=== PATIENT | female | born 1950 | race Caucasian/White ===

== ENCOUNTER → 2018-04-11 | Outpatient (CLI) | payer OTHER ==
[~2018-04-11] MED LIST: ALBU90OI INH; ALPR.25 PO; BUME2 PO; CHOL10002 PO; FISH1000 PO; FURO20 PO; HYDCHL25 PO; HYDR10 PO; HYDR1TAB94 PO; Klor-Con 1010 MEQ PO; LEVFLO500 PO; LEVSOD125 PO; LISHYD2025 PO; LISI20 PO; LISI5 PO; Lisinopril2.5 MG PO; METF500C PO; METO50 PO; Metoprolol Tar100 MG PO; Mucinex600 MG PO; NITR.4SL SL; OMEG1CAP30 PO; POTCHL10ER PO; PRAV20 PO; PRED10; Pedi-Dri 100,0060 GM TOP; Pravachol80 MG PO; TRAM50 PO; Ventolin Soln3 ML INH; Zithromax250 MG PO
== END ==
LOC: LAB SHORT 13:06 → LAB 13:06
DX: N18.9 Chronic kidney disease, unspecified (principal); R10.9 Unspecified abdominal pain
CPT/HCPCS: 87077; 87086; 87186

== ENCOUNTER 2018-11-09 16:22 | Emergency (ER) | payer OTHER ==
[~2018-11-09] VITALS: Ht 167.6 cm; Wt 117.9 kg
[2018-11-09 17:11] LABS: BASOPHILS ABSOLUTE AUTO 0.09 K/mm3 (0.00-0.23); BASOPHILS PERCENT AUTO 1 % (0-2); EOSINOPHILS ABSOLUTE AUTO 1.36 K/mm3 (0.00-0.68); EOSINOPHILS PERCENT AUTO 13 % (0-6); Hemoglobin 11.8 g/dL (11.5-16.0); IMMATURE GRAN ABSOLUTE AUTO 0.04 K/mm3 (0.00-0.10); IMMATURE GRAN PERCENT AUTO 0 % (0-1); LYMPHOCYTES PERCENT AUTO 25 % (21-46); MONOCYTES ABSOLUTE AUTO 0.89 K/mm3 (0.16-1.47); MONOCYTES PERCENT AUTO 9 % (4-13); Mean Corpuscular HGB 31.9 pg (26.0-34.0); Mean Corpuscular HGB Conc 31.9 g/dL (31.5-36.5); Mean Corpuscular Volume 100 fL (80-100); Mean Platelet Volume 11.6 fL (9.1-12.4); NEUTROPHILS PERCENT AUTO 52 % (41-73); Platelet Count 273 K/mm3 (150-400); RDW Coefficient Variation 13.8 % (11.7-14.2); RDW Standard Deviation 50.5 fL (35.1-46.3); White Blood Cell Count 10.48 K/mm3 (4.00-11.30)
[2018-11-09 17:21] LABS: Albumin, Blood 3.8 g/dL (3.4-5.0); Albumin/Globulin Ratio 1.1 (0.8-1.8); Bilirubin, Total 0.2 mg/dL (0.1-1.0); Bun/Creatinine Ratio 10.8 (12.0-20.0); Calcium, Blood 11.4 mg/dL (8.5-10.1); Creatinine, Blood 5.36 mg/dL (0.40-1.00); Globulin, Blood 3.6 g/dL (2.2-4.0); Phosphorus, Blood 3.8 mg/dL (2.5-4.9); Potassium, Blood 4.5 mmol/L (3.5-5.5); Total Protein, Blood 7.4 g/dL (6.4-8.2)
[2018-11-09 17:39] LABS: Magnesium, Blood 2.2 mg/dL (1.6-2.4)
[2018-11-09 19:59] LABS: Source, Urine Clean Catch
[2018-11-09 20:01] LABS: Bilirubin, Urine Neg (Neg); Blood, Urine 1+ (Neg); Glucose Qualitative, Urine Neg (Neg); Ketones, Urine Neg (Neg); Leukocyte Esterase, Urine 1+ (Neg); Nitrite, Urine Neg (Neg); Protein, Urine Neg (Neg); Specific Gravity, Urine 1.015 (1.003-1.022); Urobilinogen, Urine NORM (Normal)
[2018-11-09 20:08] LABS: Appearance, Urine Clear (Clear); Color, Urine Yellow (P-Yellow)
[2018-11-09 20:17] LABS: Bacteria Many /hpf; Red Blood Cells, Urine 0-2 /hpf (0-2); Squamous Epithelial Cells Few /hpf (Few)
== END 2018-11-10 00:31 | disposition short-term general hospital (02) ==
LOC: ER 16:22
PROVIDERS: Physician Assistant
DX: N13.2 Hydronephrosis with renal and ureteral calculous obstruction (principal); R19.00 Intra-abdominal and pelvic swelling, mass and lump, unspecified site; N17.9 Acute kidney failure, unspecified; I13.0 Hypertensive heart and chronic kidney disease with heart failure and stage 1 through stage 4 chronic kidney disease, or unspecified chronic kidney disease; I50.9 Heart failure, unspecified; N18.9 Chronic kidney disease, unspecified; E11.22 Type 2 diabetes mellitus with diabetic chronic kidney disease; Z79.899 Other long term (current) drug therapy; K21.9 Gastro-esophageal reflux disease without esophagitis
CPT/HCPCS: 36415; 80053; 81001; 83690; 83735; 84100; 85025; 87086; 99284

== ENCOUNTER 2018-12-12 10:23 | Emergency (ER) | payer OTHER ==
[~2018-12-12] VITALS: Ht 167.6 cm; Wt 122.5 kg
[2018-12-12 10:56] LABS: BASOPHILS ABSOLUTE AUTO 0.05 K/mm3 (0.00-0.23); BASOPHILS PERCENT AUTO 1 % (0-2); EOSINOPHILS ABSOLUTE AUTO 0.34 K/mm3 (0.00-0.68); EOSINOPHILS PERCENT AUTO 4 % (0-6); Hematocrit 36.7 % (33.0-51.0); Hemoglobin 11.6 g/dL (11.5-16.0); IMMATURE GRAN ABSOLUTE AUTO 0.02 K/mm3 (0.00-0.10); IMMATURE GRAN PERCENT AUTO 0 % (0-1); LYMPHOCYTES ABSOLUTE AUTO 2.45 K/mm3 (0.84-5.20); LYMPHOCYTES PERCENT AUTO 30 % (21-46); MONOCYTES ABSOLUTE AUTO 0.72 K/mm3 (0.16-1.47); MONOCYTES PERCENT AUTO 9 % (4-13); Mean Corpuscular HGB 31.5 pg (26.0-34.0); Mean Corpuscular HGB Conc 31.6 g/dL (31.5-36.5); Mean Corpuscular Volume 100 fL (80-100); Mean Platelet Volume 10.5 fL (9.1-12.4); NEUTROPHILS PERCENT AUTO 56 % (41-73); Platelet Count 318 K/mm3 (150-400); RDW Coefficient Variation 15.1 % (11.7-14.2); RDW Standard Deviation 55.4 fL (35.1-46.3); Red Blood Cell Count 3.68 M/mm3 (3.80-5.20); White Blood Cell Count 8.08 K/mm3 (4.00-11.30)
[2018-12-12 11:20] LABS: Albumin, Blood 3.6 g/dL (3.4-5.0); Albumin/Globulin Ratio 0.9 (0.8-1.8); Bilirubin, Total 0.2 mg/dL (0.1-1.0); Calcium, Blood 9.7 mg/dL (8.5-10.1); Creatinine, Blood 2.07 mg/dL (0.40-1.00); Globulin, Blood 3.9 g/dL (2.2-4.0); Potassium, Blood 4.4 mmol/L (3.5-5.5); Total Protein, Blood 7.5 g/dL (6.4-8.2)
[2018-12-12 11:48] LABS: Source, Urine Clean Catch
[2018-12-12 11:55] LABS: Bilirubin, Urine Neg (Neg); Blood, Urine Neg (Neg); Glucose Qualitative, Urine Neg (Neg); Ketones, Urine Neg (Neg); Leukocyte Esterase, Urine 2+ (Neg); Nitrite, Urine Neg (Neg); Protein, Urine 2+ (Neg); Urobilinogen, Urine NORM (Normal)
[2018-12-12 12:02] LABS: Appearance, Urine Hazy (Clear); Bacteria Few /hpf; Color, Urine Yellow (P-Yellow); Red Blood Cells, Urine Not Seen /hpf (0-2); Squamous Epithelial Cells Few /hpf (Few)
[2018-12-12] MEDS ORDERED: Norco 5-325 Ta1 EACH PO (13:37)
== END 2018-12-12 13:43 | disposition home or self-care (01) ==
LOC: ER 10:23
PROVIDERS: Emergency Medicine
DX: G89.18 Other acute postprocedural pain (principal); R10.31 Right lower quadrant pain; I13.0 Hypertensive heart and chronic kidney disease with heart failure and stage 1 through stage 4 chronic kidney disease, or unspecified chronic kidney disease; I50.9 Heart failure, unspecified; N18.9 Chronic kidney disease, unspecified; E11.22 Type 2 diabetes mellitus with diabetic chronic kidney disease; K21.9 Gastro-esophageal reflux disease without esophagitis; E66.9 Obesity, unspecified; Z79.899 Other long term (current) drug therapy
CPT/HCPCS: 36415; 74176; 80053; 81001; 85025; 87077; 87086; 87186; P9612

== ENCOUNTER → 2019-06-07 | Outpatient (CLI) | payer OTHER ==
[~2019-06-07] MED LIST changes: +Norco 5-325 Ta1 EACH PO
[2019-06-07 13:50] LABS: Source, Urine Clean Catch
[2019-06-07 15:07] LABS: Bilirubin, Urine Neg (Neg); Blood, Urine 1+ (Neg); Glucose Qualitative, Urine Neg (Neg); Ketones, Urine Neg (Neg); Leukocyte Esterase, Urine 3+ (Neg); Nitrite, Urine Neg (Neg); Protein, Urine 1+ (Neg); Urobilinogen, Urine NORM (Normal)
[2019-06-07 15:28] LABS: Appearance, Urine Hazy (Clear); Color, Urine Yellow (P-Yellow)
[2019-06-07 15:30] LABS: Bacteria Mod /hpf; Calcium Oxalate Crystals Many /hpf; Squamous Epithelial Cells Many /hpf (Few)
== END | disposition home or self-care (01) ==
LOC: LAB SHORT 13:48 → LAB 13:48
PROVIDERS: Radiology Radiation Oncology
DX: R30.0 Dysuria (principal)
CPT/HCPCS: 81001; 87086

== ENCOUNTER → 2020-04-03 | Outpatient (CLI) | payer OTHER ==
[2020-04-03 14:44] LABS: BASOPHILS ABSOLUTE AUTO 0.04 K/mm3 (0.00-0.23); BASOPHILS PERCENT AUTO 1 % (0-2); EOSINOPHILS ABSOLUTE AUTO 0.23 K/mm3 (0.00-0.68); EOSINOPHILS PERCENT AUTO 4 % (0-6); Hemoglobin 13.3 g/dL (11.5-16.0); IMMATURE GRAN ABSOLUTE AUTO 0.04 K/mm3 (0.00-0.10); IMMATURE GRAN PERCENT AUTO 1 % (0-1); LYMPHOCYTES ABSOLUTE AUTO 1.25 K/mm3 (0.84-5.20); LYMPHOCYTES PERCENT AUTO 20 % (21-46); MONOCYTES ABSOLUTE AUTO 0.57 K/mm3 (0.16-1.47); MONOCYTES PERCENT AUTO 9 % (4-13); Mean Corpuscular HGB 31.4 pg (26.0-34.0); Mean Corpuscular HGB Conc 31.7 g/dL (31.5-36.5); Mean Corpuscular Volume 99 fL (80-100); Mean Platelet Volume 10.2 fL (9.1-12.4); NEUTROPHILS ABSOLUTE AUTO 4.09 K/mm3 (1.96-9.15); NEUTROPHILS PERCENT AUTO 66 % (41-73); Platelet Count 271 K/mm3 (150-400); RDW Coefficient Variation 15.9 % (11.7-14.2); Red Blood Cell Count 4.24 M/mm3 (3.80-5.20); White Blood Cell Count 6.22 K/mm3 (4.00-11.30)
[2020-04-03 15:09] LABS: Albumin, Blood 3.4 g/dL (3.4-5.0); Bilirubin, Total 0.3 mg/dL (0.1-1.0); Bun/Creatinine Ratio 14.1 (12.0-20.0); Creatinine, Blood 1.56 mg/dL (0.40-1.00); Globulin, Blood 3.5 g/dL (2.2-4.0); Potassium, Blood 4.1 mmol/L (3.5-5.5); Total Protein, Blood 6.9 g/dL (6.4-8.2)
== END | disposition home or self-care (01) ==
LOC: LAB 13:51 → LAB SHORT 13:51
PROVIDERS: Registered Nurse Oncology
DX: C55 Malignant neoplasm of uterus, part unspecified (principal)
CPT/HCPCS: 80053; 85025

== ENCOUNTER → 2021-07-18 | Outpatient (CLI) | payer OTHER ==
[2021-07-18 16:22] LABS: Free Thyroxine 1.44 ng/dL (0.70-1.60); Thyroid Stimulating Hormone 0.941 uIU/mL (0.360-4.800)
== END | disposition home or self-care (01) ==
LOC: LAB SHORT 12:20
PROVIDERS: Physician Assistant
DX: E03.9 Hypothyroidism, unspecified (principal)
CPT/HCPCS: 84439; 84443

== ENCOUNTER 2022-12-12 08:06 | Day surgery (SDC) | payer OTHER ==
[~2022-12-12] VITALS: Ht 167.6 cm; Wt 140.1 kg
[~2022-12-12 08:06] MED LIST changes: +ASPI325 PO; +ASPIR 8181 MG PO; +ATOR10 PO; +CATAPRES0.3 MG PO; +CLON.2 PO; +EUTHYROX50 MC1 PO; +FUROSEMIDE20 MG PO; +IPRAT-ALBUT 0.5-3 ML INH; +METO50ER PO; +METOPROLOL SUCC25 MG PO; +MICONAZOLE NITR85 GM TOP; +PANT20 PO; +POTA10T PO; +Prednisone10 MG PO
[2022-12-12] MEDS ORDERED: LOSA50 PO (08:56)
[2022-12-12] MEDS ORDERED: CALC.25 PO (08:57)
--- NOTE | 2022-12-12 09:11 | NUR ---
12/12/22 0911 Zeina Bateman IN AT 0850 ANNETTE IN AT 0884
--- NOTE | 2022-12-12 16:59 | NUR ---
12/12/22 165Whitley Ruth 1045: THREE LEAD EKG COMPLETED ON PT D/T PULSE RISING TO 150'S TWICE SINCE [facility]. HR HAS NOT SUSTAINED AT THIS LEVEL SINCE PATIENT HAS [facility], SHE HAS MAINTAINED HER BASELINE LEVEL, MOSTLY SUSTAINING IN THE 70'S. PATIENT REPORTS NO SYMPTOMS OF CHEST PAIN, SHORTNESS OF BREATH, HEART RACING OR PALPITATIONS OR OTHER ISSUES. 1053: THREE LEAD EKG SHOWS ATRIAL FIBRILLATION ON MONITOR, CONSULTED DR RODRIGUEZ. ACCORDING TO DR RODRIGUEZ, PATIENT HAS HISTORY OF ATRIAL FIBRILLATION AND IS OKAY TO DISCHARGE WITH HEART RATE IT IS STABLE IN THE 70'S.
== END 2022-12-12 11:05 | disposition home or self-care (01) ==
LOC: ORSCSDS 08:06
PROVIDERS: Ophthalmology
PROC: 08DJ3ZZ Extraction of Right Lens, Percutaneous Approach (ICD-10-PCS; principal; 2022-12-12 09:30)
DX: H25.11 Age-related nuclear cataract, right eye (principal); I10 Essential (primary) hypertension; I25.2 Old myocardial infarction; Z86.16 Personal history of COVID-19; E07.9 Disorder of thyroid, unspecified; E66.01 Morbid (severe) obesity due to excess calories; Z68.42 Body mass index [BMI] 45.0-49.9, adult; Z79.82 Long term (current) use of aspirin; Z79.899 Other long term (current) drug therapy
CPT/HCPCS: 82947; A9270; J2001; J2250; J3010; J3301; J7040; V2632

== ENCOUNTER 2022-12-19 08:12 | Day surgery (SDC) | payer MEDICARE, OTHER ==
[~2022-12-19] VITALS: Ht 167.6 cm; Wt 138.8 kg
[~2022-12-19 08:12] MED LIST changes: +CALC.25 PO; +LOSA50 PO
--- NOTE | 2022-12-19 09:10 | NUR ---
12/19/22 0910 Lisset Solano AT 0855 [place] AT 0868
--- NOTE | 2022-12-19 10:37 | NUR ---
12/19/22 Jack Kimball PT INSTRUCTED TO FOLLOW UP WITH PCP REGARDING HYPERTENSION AND DIABETES. DR. VAUGHN AWARE, PER REPORT.
== END 2022-12-19 10:35 | disposition home or self-care (01) ==
LOC: ORSCSDS 08:12
PROVIDERS: Ophthalmology
PROC: 08RK3JZ Replacement of Left Lens with Synthetic Substitute, Percutaneous Approach (ICD-10-PCS; principal; 2022-12-19 09:30)
DX: H25.12 Age-related nuclear cataract, left eye (principal); Z96.1 Presence of intraocular lens; I25.10 Atherosclerotic heart disease of native coronary artery without angina pectoris; I48.91 Unspecified atrial fibrillation; E03.9 Hypothyroidism, unspecified; E11.22 Type 2 diabetes mellitus with diabetic chronic kidney disease; I12.9 Hypertensive chronic kidney disease with stage 1 through stage 4 chronic kidney disease, or unspecified chronic kidney disease; N18.9 Chronic kidney disease, unspecified; Z79.899 Other long term (current) drug therapy; E66.01 Morbid (severe) obesity due to excess calories; Z68.42 Body mass index [BMI] 45.0-49.9, adult; Z79.82 Long term (current) use of aspirin; Z85.42 Personal history of malignant neoplasm of other parts of uterus; Z86.16 Personal history of COVID-19
CPT/HCPCS: 82947; J2001; J2250; J2405; J3301; J7040; V2632

== ENCOUNTER 2023-06-30 17:08 | Emergency (ER) | payer MEDICARE, OTHER ==
[~2023-06-30] VITALS: Ht 165.1 cm; Wt 127.0 kg
[2023-06-30 18:14] LABS: BASOPHILS ABSOLUTE AUTO 0.07 K/mm3 (0.00-0.23); BASOPHILS PERCENT AUTO 1 % (0-2); EOSINOPHILS ABSOLUTE AUTO 0.37 K/mm3 (0.00-0.68); EOSINOPHILS PERCENT AUTO 5 % (0-6); Hematocrit 46.3 % (33.0-51.0); Hemoglobin 14.8 g/dL (11.5-16.0); IMMATURE GRAN ABSOLUTE AUTO 0.06 K/mm3 (0.00-0.10); IMMATURE GRAN PERCENT AUTO 1 % (0-1); LYMPHOCYTES ABSOLUTE AUTO 1.29 K/mm3 (0.84-5.20); LYMPHOCYTES PERCENT AUTO 17 % (21-46); MONOCYTES ABSOLUTE AUTO 0.48 K/mm3 (0.16-1.47); MONOCYTES PERCENT AUTO 6 % (4-13); Mean Corpuscular Volume 91 fL (80-100); Mean Platelet Volume 9.2 fL (9.1-12.4); NEUTROPHILS PERCENT AUTO 70 % (41-73); Platelet Count 269 K/mm3 (150-400); RDW Coefficient Variation 15.3 % (11.7-14.2); RDW Standard Deviation 50.2 fL (35.1-46.3); Red Blood Cell Count 5.11 M/mm3 (3.80-5.20); White Blood Cell Count 7.47 K/mm3 (4.00-11.30)
[2023-06-30 18:37] LABS: Albumin, Blood 3.5 g/dL (3.4-5.0); Bilirubin, Total 0.4 mg/dL (0.1-1.0); Bun/Creatinine Ratio 16.9 (12.0-20.0); Calcium, Blood 9.3 mg/dL (8.5-10.1); Creatinine, Blood 1.3 mg/dL (0.40-1.00); Globulin, Blood 3.6 g/dL (2.2-4.0); Potassium, Blood 4.6 mmol/L (3.5-5.5); Total Protein, Blood 7.1 g/dL (6.4-8.2)
[2023-06-30 22:34] VITALS: BP 155/66
[2023-06-30] MEDS ORDERED: ELIQUIS5 M9 PO (22:53)
== END 2023-06-30 23:25 | disposition home or self-care (01) ==
LOC: ER 17:08
PROVIDERS: Student in an Organized Health Care Education/Training Program
DX: I26.99 Other pulmonary embolism without acute cor pulmonale (principal); I13.0 Hypertensive heart and chronic kidney disease with heart failure and stage 1 through stage 4 chronic kidney disease, or unspecified chronic kidney disease; N18.9 Chronic kidney disease, unspecified; I50.9 Heart failure, unspecified; E11.22 Type 2 diabetes mellitus with diabetic chronic kidney disease; Z88.8 Allergy status to other drugs, medicaments and biological substances; Z91.048 Other nonmedicinal substance allergy status; Z79.899 Other long term (current) drug therapy; Z79.82 Long term (current) use of aspirin
CPT/HCPCS: 80053; 83880; 84484; 85025; 93005; 93010; 99285-25; A9270

== ENCOUNTER 2023-11-03 23:04 | Inpatient (IN) | payer MEDICARE, OTHER ==
[~2023-11-03] VITALS: Ht 167.6 cm; Wt 133.0 kg
[~2023-11-03 23:04] MED LIST changes: +ELIQUIS5 M9 PO
[2023-11-04] VITALS (40 sets, daily range): BP systolic 109–183; BP diastolic 60–108
[2023-11-04 00:22] LABS: Source, Urine Foley catheter
[2023-11-04 00:29] LABS: Blood, Urine 5+ (Neg); Glucose Qualitative, Urine Neg (Neg); Ketones, Urine 1+ (Neg); Leukocyte Esterase, Urine 3+ (Neg); Nitrite, Urine Neg (Neg); Protein, Urine 3+ (Neg); Specific Gravity, Urine 1.025 (1.003-1.022); Urobilinogen, Urine NORM (Normal)
[2023-11-04 00:30] LABS: Calcium, Ionized (POC) 1.17 mmol/L (1.10-1.46); Chloride (POC) 118 mmol/L (98-108); Creatinine (POC) 2.6 mg/dL (0.6-1.0); Glucose (ISTAT POC) 162 mg/dL (70-99); Hemoglobin (POC) 18.4 g/dL (12.0-16.0); Potassium (POC) 5.1 mmol/L (3.5-5.5); Sodium (POC) 149 mmol/L (135-148); Total CO2 (POC) 21 mmol/L (21-32)
[2023-11-04 00:31] LABS: Appearance, Urine Turbid (Clear); Bilirubin, Urine 1+ (Neg); Color, Urine Brown (P-Yellow)
[2023-11-04 00:42] LABS: BASOPHILS ABSOLUTE AUTO 0.05 K/mm3 (0.00-0.23); BASOPHILS PERCENT AUTO 0 % (0-2); EOSINOPHILS PERCENT AUTO 0 % (0-6); Hematocrit 54.5 % (33.0-51.0); Hemoglobin 16.9 g/dL (11.5-16.0); IMMATURE GRAN ABSOLUTE AUTO 0.08 K/mm3 (0.00-0.10); IMMATURE GRAN PERCENT AUTO 1 % (0-1); LYMPHOCYTES PERCENT AUTO 5 % (21-46); MONOCYTES ABSOLUTE AUTO 0.85 K/mm3 (0.16-1.47); MONOCYTES PERCENT AUTO 7 % (4-13); Mean Corpuscular HGB 30.4 pg (26.0-34.0); Mean Corpuscular Volume 98 fL (80-100); Mean Platelet Volume 11.3 fL (9.1-12.4); NEUTROPHILS ABSOLUTE AUTO 11.35 K/mm3 (1.96-9.15); NEUTROPHILS PERCENT AUTO 88 % (41-73); Platelet Count 309 K/mm3 (150-400); RDW Coefficient Variation 17.5 % (11.7-14.2); RDW Standard Deviation 62.7 fL (35.1-46.3); Red Blood Cell Count 5.56 M/mm3 (3.80-5.20); White Blood Cell Count 12.93 K/mm3 (4.00-11.30)
[2023-11-04 00:57] LABS: International Normalized Ratio 2.4
[2023-11-04 00:58] LABS: Base Excess Venous -13.2 mmol/L; Bicarbonate Venous 15.5 mmol/L (24.0-30.0); PCO2 Venous 33.1 mmHg (38-42)
[2023-11-04 00:59] LABS: pH Blood Venous 7.24 (7.34-7.37)
[2023-11-04 01:21] LABS: Magnesium, Blood 2.8 mg/dL (1.6-2.4); Phosphorus, Blood 4.6 mg/dL (2.5-4.9)
[2023-11-04 01:22] LABS: Acetaminophen, Random <2.0 ug/mL (10.0-30.0)
[2023-11-04 01:32] LABS: U Amphetamine Screen Not Detected; U Barbituate Screen Not Detected; U Benzodiazapine Screen Not Detected; U Buprenorphine Screen Not Detected; U Cannabinoids Screen Not Detected; U Cocaine Screen Not Detected; U Methadone Screen Not Detected; U Methamphetamine Screen Not Detected; U Opiates Screen Not Detected; U Oxycodone Screen Not Detected; U Phencyclidine Screen Not Detected
[2023-11-04 01:33] LABS: Bacteria Many /hpf; Red Blood Cells, Urine TNTC /hpf (0-2); Squamous Epithelial Cells Rare /hpf (Few); White Blood Cells, Urine 50-100 /hpf (0-5)
[2023-11-04 01:34] LABS: Amorphous Heavy (0-Heavy)
[2023-11-04 01:38] LABS: Influenza A, PCR NEGATIVE (NEGATIVE); Influenza B, PCR NEGATIVE (NEGATIVE); Resp Syncytial Virus, PCR NEGATIVE (NEGATIVE); SARS-Cov-2 (COVID-19) PCR, MMC NEGATIVE (NEGATIVE)
[2023-11-04 02:29] LABS: Albumin, Blood 2.9 g/dL (3.4-5.0); Albumin/Globulin Ratio 0.7 (0.8-1.8); Bilirubin, Total 0.5 mg/dL (0.1-1.0); Bun/Creatinine Ratio 35.2 (12.0-20.0); Calcium, Blood 9.2 mg/dL (8.5-10.1); Creatinine, Blood 2.27 mg/dL (0.40-1.00); Potassium, Blood 5.5 mmol/L (3.5-5.5); Total Protein, Blood 6.9 g/dL (6.4-8.2)
[2023-11-04 03:47] LABS: BASOPHILS ABSOLUTE AUTO 0.03 K/mm3 (0.00-0.23); BASOPHILS PERCENT AUTO 0 % (0-2); EOSINOPHILS PERCENT AUTO 0 % (0-6); Hematocrit 47.5 % (33.0-51.0); Hemoglobin 15.5 g/dL (11.5-16.0); IMMATURE GRAN ABSOLUTE AUTO 0.06 K/mm3 (0.00-0.10); IMMATURE GRAN PERCENT AUTO 0 % (0-1); LYMPHOCYTES ABSOLUTE AUTO 0.71 K/mm3 (0.84-5.20); LYMPHOCYTES PERCENT AUTO 5 % (21-46); MONOCYTES ABSOLUTE AUTO 1.23 K/mm3 (0.16-1.47); MONOCYTES PERCENT AUTO 9 % (4-13); Mean Corpuscular HGB 30.4 pg (26.0-34.0); Mean Corpuscular HGB Conc 32.6 g/dL (31.5-36.5); Mean Platelet Volume 10.9 fL (9.1-12.4); NEUTROPHILS ABSOLUTE AUTO 11.88 K/mm3 (1.96-9.15); NEUTROPHILS PERCENT AUTO 86 % (41-73); NRBC ABSOLUTE 0.02 K/mm3 (0.00-0.02); NRBC Auto 0.1 /100 WBC (0.0-0.2); Platelet Count 324 K/mm3 (150-400); RDW Coefficient Variation 16.8 % (11.7-14.2); RDW Standard Deviation 57.3 fL (35.1-46.3); White Blood Cell Count 13.91 K/mm3 (4.00-11.30)
[2023-11-04 03:50] LABS: Mean Corpuscular Volume 93 fL (80-100)
[2023-11-04 04:01] LABS: International Normalized Ratio 2.42; Prothrombin Time Results 24.2 Sec (9.7-11.5)
[2023-11-04 04:07] LABS: Albumin/Globulin Ratio 0.8 (0.8-1.8); Bilirubin, Total 0.4 mg/dL (0.1-1.0); Bun/Creatinine Ratio 36.5 (12.0-20.0); Calcium, Blood 9.4 mg/dL (8.5-10.1); Creatinine, Blood 2.19 mg/dL (0.40-1.00); Globulin, Blood 3.8 g/dL (2.2-4.0); Magnesium, Blood 2.6 mg/dL (1.6-2.4); Potassium, Blood 4.2 mmol/L (3.5-5.5); Total Protein, Blood 6.8 g/dL (6.4-8.2)
[2023-11-04] MEDS ORDERED: ELIQUIS5 M2 PO (04:20)
[2023-11-04] MEDS ORDERED: REDNESS RELIEVE15 M1 BOTHEYES (04:23)
[2023-11-04] MEDS ORDERED: LUBRICANT EYE1 EAC1 BOTHEYES (04:24)
[2023-11-04] MEDS ORDERED: LOPE2C PO (04:28)
[2023-11-04] MEDS ORDERED: HYDROCORTISON28.4 G4 TOP (04:30)
--- NOTE | 2023-11-04 04:41 | NUR ---
ASSUMED CARE PT ARRIVED ON UNIT AT 031. SPO2 >92% ON RA (NOW ON 2LNC WHILE SLEEPING); MAP >65; RATE VARIABLE IN 100-150'S (MOSTLY 100-120'S). PT SLEEPING WHEN LEFT ALONE AND PAINFUL W/ ANY PHYSICAL INTERVENTION (REPOSITIONING ETC.). PT AROUSES TO VERBAL STIMULI AND IS ABLE TO STATE NAME/BIRTHDATE. PT DOES NOT MAINTAIN WAKEFULNESS AND REQUIRES SEVERAL PROMPTS TO GIVE NAME/BIRTHDATE. PT HAS EXSCORIATION IN FOLDS, BLISTER ON LEFT FOOT, OPEN SORE/SCAB ON RIGHT FOOT, AND BLACK ESCHAR ULCERATIONS ON BUTTOX (SEE PICTURES); DR ISABEL NOTIFIED. DR ISABEL NOTIFIED ABOUT PT'S RATE BEING LABILE 100-150'S W/ ELEVATED PRESSURES; ORDERS TO HOLD LOPRESSOR AND HYDRALAZINE ORDERED. PRN HTN NOT GIVEN D/T PT'S SBP IN THE 140-150'S AT TIME OF THIS NOTE. PT IS RESTING QUIETLY AT THIS TIME
[2023-11-04 05:35] LABS: PCO2 Venous 43.3 mmHg (38-42); pH Blood Venous 7.27 (7.34-7.37)
[2023-11-04 05:36] LABS: Bicarbonate Venous 18.4 mmol/L (24.0-30.0)
--- NOTE | 2023-11-04 06:10 | NUR ---
SHIFT SUMMARY NO ACUTE EVENTS SINCE PREVIOUS NOTE. PT CONTINUES TO AROUSE TO VERBAL STIMULI. NOW VERBALIZES THAT SHE IS IN THE HOSPITAL.
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
--- NOTE | 2023-11-04 08:35 | NUR ---
DR. BOWENS UPDATED ON PATIENT STATUS. INFORMED THAT URINE COLA COLORED. INFORMED THAT 200 MLS URINE OUTPUT SINCE ARRIVED TO [facility]. INFORMED THAT PATIENT HAS SCDS AND IS IN A. FIB. INFORMED THAT MED REC NOT RECONCILED BUT THAT IT IS SHOWING PATIENT TAKES ELIQUIS AT HOME. NO ORDERS RECEIVED AT THIS TIME.
[2023-11-04 09:08] LABS: Base Excess Venous -3.9 mmol/L; Bicarbonate Venous 21.2 mmol/L (24.0-30.0); PCO2 Venous 39 mmHg (38-42); pH Blood Venous 7.35 (7.34-7.37)
[2023-11-04 09:41] LABS: Anion Gap 7 mmol/L (6-16); Blood Urea Nitrogen 79 mg/dL (8-24); Bun/Creatinine Ratio 37.6 (12.0-20.0); CO2, Blood 22 mmol/L (21-32); Calcium, Blood 9.4 mg/dL (8.5-10.1); Chloride, Blood 123 mmol/L (98-108); Glomerular Filtration Rate 25 (60-); Glucose, Blood 151 mg/dL (70-99); Phosphorus, Blood 2.6 mg/dL (2.5-4.9); Potassium, Blood 3.8 mmol/L (3.5-5.5); Sodium, Blood 152 mmol/L (136-145)
[2023-11-04 11:48] LABS: Base Excess Venous -1.4 mmol/L; Bicarbonate Venous 22.2 mmol/L (24.0-30.0); PCO2 Venous 44.5 mmHg (38-42); pH Blood Venous 7.35 (7.34-7.37)
--- NOTE | 2023-11-04 12:00 | NUR ---
PATIENT AFEBRILE. PATIENT NOW MORE AWAKE AND ALERT AND ORIENTED X 4. VOICE SOFT. HR IN THE 120S. SBP IN THE 120S. NO OTHER ACUTE CHANGES TO NOTE ON AT THIS TIME. CARE CONTINUES.
[2023-11-04] MEDS ORDERED: METO50 PO (15:10)
--- NOTE | 2023-11-04 16:50 | NUR ---
PATIENT AFEBRILE. HR IN THE LOW 100S. SBP IN THE 150S. PATIENT REMAINS ALERT AND ORIENTED. PATIENT PASSED NURSE BEDSIDE SWALLOW EVAL. CARE CONTINUES.
--- NOTE | 2023-11-04 16:57 | NUR ---
Spoke to pt's daughter Mackenzie about pt's animals. Received confirmation from [facility] they will keep animals for up to 10 days if there are no family or other options available when a person is hospitalized. Mackenzie stated appreciation for the information, but does plan to try and care for the patients 2 cats and 1 dog for the time being. She is planning to come see the patient this evening. Gave her an update on her mom's condition after speaking to ICU bedside RN. Will remain available to pt and family for supportive visits.
--- NOTE | 2023-11-04 18:48 | NUR ---
SHIFT SUMMARY PATIENT OBTUNDED AND ONLY ABLE TO STATE NAME WITH CERTAINTY THIS AM. PATIENT RESTING QUIETLY IN BED AT THIS TIME BUT WAKES WHEN NURSE ENTERS ROOM AND IS ABLE TO ANSWER ALL ORIENTATION QUESTIONS CORRECTLY. PATIENT VOICE IS SOFT. PATIENT REMAINED AFEBRILE. PATIENT HAD NO SIGNS OF PAIN NOTED THIS SHIFT EXCEPT FOR BRIEF PERIODS WHEN REPOSITIONING. PATIENT REMAINED ON 2 L NC WOULD DESAT WITH SLEEP. PATIENT REMAINED IN A. FIB, HR LOW 100S TO 160S. SBP LOW 100S TO 160S. PATIENT GIVEN PRN LOPRESSOR ONCE THIS AM FOR TACHYCARDIA. PATIENT HAD SMALL BM SMEAR THIS AM. PATIENT PASSED BEDSIDE NURSE SWALLOW AND PLACED ON RENAL/ FULL LIQUID DIET. ORDER TO ADVANCE TOLERATED. BLOOD SUGARS 165 AND 118 THIS SHIFT. PATIENT HAD 350 MLS OF COLA COLORED URINE OUT FROM AKBAR THIS SHIFT. NO CHANGES TO SKIN NOTED. PATIENT RECEIVED COMPLETE BED BATH AND WOUND CARE THIS SHIFT. PALLIATIVE CARE SPOKE WITH PATIENT'S DAUGHTER A COUPLE OF TIMES TODAY. BED LOW, CALL LIGHT IN REACH. PATIENT APPEARS COMFORTABLE AT THIS TIME. REPORT WILL BE GIVEN TO ASSUMING POPULATION GENETICIST NURSE SHORTLY.
--- NOTE | 2023-11-04 19:44 | NUR ---
ASSUMED CARE PT IS SOMNULENT; AROUSES TO VERBAL STIMULI, BUT DOES NOT MAINTAIN WAKEFULNESS. SPO2 >92% ON 2LNC; MAP >65. FAMILY AT BEDSIDE.
--- NOTE | 2023-11-04 20:39 | NUR ---
UPDATE PT CONTINUES TO BE SOMNULENT, BUT WOKE AND STATED NAME, , LOCATION, AND TOWN. PT COMMUNICATING APPROPRIATELY AND STATED "THANK YOU FOR TAKING CARE OF ME. DON'T LEAVE ME.".
[2023-11-05] VITALS (34 sets, daily range): BP systolic 117–203; BP diastolic 57–110
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
[2023-11-05 03:58] LABS: BASOPHILS ABSOLUTE AUTO 0.01 K/mm3 (0.00-0.23); BASOPHILS PERCENT AUTO 0 % (0-2); EOSINOPHILS ABSOLUTE AUTO 0.02 K/mm3 (0.00-0.68); EOSINOPHILS PERCENT AUTO 0 % (0-6); Hematocrit 42.8 % (33.0-51.0); IMMATURE GRAN ABSOLUTE AUTO 0.08 K/mm3 (0.00-0.10); IMMATURE GRAN PERCENT AUTO 1 % (0-1); LYMPHOCYTES ABSOLUTE AUTO 1.03 K/mm3 (0.84-5.20); LYMPHOCYTES PERCENT AUTO 11 % (21-46); MONOCYTES ABSOLUTE AUTO 1.02 K/mm3 (0.16-1.47); MONOCYTES PERCENT AUTO 11 % (4-13); Mean Corpuscular HGB 30.6 pg (26.0-34.0); Mean Corpuscular HGB Conc 32.7 g/dL (31.5-36.5); Mean Corpuscular Volume 93 fL (80-100); Mean Platelet Volume 10.7 fL (9.1-12.4); NEUTROPHILS ABSOLUTE AUTO 7.56 K/mm3 (1.96-9.15); NEUTROPHILS PERCENT AUTO 78 % (41-73); NRBC ABSOLUTE 0.02 K/mm3 (0.00-0.02); NRBC Auto 0.2 /100 WBC (0.0-0.2); Platelet Count 306 K/mm3 (150-400); RDW Standard Deviation 58.2 fL (35.1-46.3); Red Blood Cell Count 4.58 M/mm3 (3.80-5.20); White Blood Cell Count 9.72 K/mm3 (4.00-11.30)
[2023-11-05 04:23] LABS: Albumin, Blood 2.6 g/dL (3.4-5.0); Anion Gap 7 mmol/L (6-16); Blood Urea Nitrogen 75 mg/dL (8-24); CO2, Blood 25 mmol/L (21-32); Calcium, Blood 8.9 mg/dL (8.5-10.1); Chloride, Blood 121 mmol/L (98-108); Creatinine, Blood 1.83 mg/dL (0.40-1.00); Glomerular Filtration Rate 29 (60-); Glucose, Blood 105 mg/dL (70-99); Phosphorus, Blood 2.5 mg/dL (2.5-4.9); Potassium, Blood 3.4 mmol/L (3.5-5.5); Sodium, Blood 153 mmol/L (136-145)
--- NOTE | 2023-11-05 05:44 | NUR ---
SHIFT SUMMARY PT AWAKE T/O NIGHT; STILL SOMNULENT, BUT FREQUENTLY WAKES AND MAKES REQUESTS FOR WATER AND REPOSITIONING. CONTINUES TO BE ORIENTED X3; PLEASANT AND COOPERATIVE. NO ACUTE EVENTS OVERNIGHT. AKBAR CATHETER PATENT AND DRAINING TO GRAVITY. SPO2 >92% ON 2LNC; MAP>65; RATE MOSTLY IN THE 100-120'S.
[2023-11-05 10:57] LABS: Magnesium, Blood 2.7 mg/dL (1.6-2.4); Potassium, Blood 3.4 mmol/L (3.5-5.5)
--- NOTE | 2023-11-05 11:40 | NUR ---
AM SUMMARY: PT CONTINUES SOMNOLENT, OCCASIONALLY WAKING SPONTANEOUSLY AND ALSO TO VERBAL. PT WILL ANSWER QUESTIONS BRIEFLY THEN FALLS BACK TO SLEEP, SOMETIMES IN THE MIDDLE OF CONVERSATION. PT IS ORIENTED TO SELF AND LOCATION, BUT IS UNSURE OF DATE AND SITUATION. NO SIGN OF PAIN THIS AM, PT REPOSITIONED Q2H. O2 SATS >93% ON 2 L/MIN NC. COARSE LS, DIM IN BASES, OCCASIONAL CONGESTED COUGH NOTED. AFIB ON MONITOR W/RATE 110s, PT MEDICATED x1 FOR HTN. ALL EXTREMITIES OF VARIOUS LEVELS OF EDEMA. RUE NOTED TO HAVE EXTENSIVE SWELLING AND BRUISING, PROVIDER NOTIFIED, US PERFORMED AT BEDSIDE, AWAITING RESULTS. DIFFICULT VASCULAR ACCESS CONTINUES, ORDER OBTAINED FOR PICC LINE, PLACEMENT ATTEMPT CURRENTLY IN PROGRESS. INDWELLING AKBAR PATENT, DRAINING DOMONIQUE COLORED URINE TO GRAVITY. WOUND CONSULT PENDING FOR EXTENSIVE WOUNDS.
--- NOTE | 2023-11-05 13:39 | NUR ---
UPDATE/BP: PT WAS FOUND TO BE HYPERTENSIVE, MEDICATED W/PRN HYDRALAZINE W/NO EFFECT, POWERGLIDE FOUND TO BE NOT PATENT AND PULLED. NEW ORDER OBTAINED FOR PICC LINE WHICH WAS PLACED W/OUT DIFFICULTY. PHARMACY CONSULTED, NEW ORDER FOR ONE TIME DOSE OF HYDRALAZINE HAS BEEN GIVEN, PHARMACIST STATES HEAT/COLD THERAPY IS APPROPRIATE IF PT C/O PAIN IN MEGAN. NO COMPLAINT OF PAIN SO FAR, WILL CONTINUE TO MONITOR AND TREAT ACCORDINGLY. PT HAS ALSO RECEIVED ONE DOSE IVP METOPROLOL THIS SHIFT FOR HR 130-140s. HR CURRENTLY 90s-110s. PT RESTING QUIETLY IN ROOM, CALL LIGHT IN REACH.
--- NOTE | 2023-11-05 18:36 | NUR ---
SHIFT SUMMARY: PT CONTINUES SOMNOLENT W/MOMENTS OF WAKEFULNESS, NOT SUSTAINED. PT DID STAY AWAKE DURING A BEDBATH THIS LATE AFTERNOON AND DRANK/ATE SOME DINNER AFTERWARDS, TOLERATED WELL. NO CHANGE TO RESPIRATORY STATUS SINCE AM NOTE. AFIB CONTINUES ON MONITOR, PT HAS BEEN MEDICATED x1 FOR HR, x1 FOR BP, AND x1 FOR PAIN. CURRENTLY, PT HR MOSTLY 100-120 W/OCCASIONAL PEAKS INTO 130s BUT NOT SUSTAINING AT THIS TIME. INDWELLING AKBAR PATENT, DRAINING DOMONIQUE COLORED URINE TO GRAVITY. DR CLAROS TO BEDSIDE THIS AM FOR NEPHROLOGY CONSULT. WOUND CARE CONSULT COMPLETED THIS SHIFT, AWAITING WOUND CARE ORDERS. PT'S FRIEND, MADHAVI, UPDATED VIA PHONE PER PT PERMISSION. WILL CONTINUE TO MONITOR AND TREAT ACCORDINGLY UNTIL CHANGE OF SHIFT.
[2023-11-06] VITALS (15 sets, daily range): BP systolic 82–204; BP diastolic 64–118
[2023-11-06 04:05] LABS: BASOPHILS ABSOLUTE AUTO 0.01 K/mm3 (0.00-0.23); BASOPHILS PERCENT AUTO 0 % (0-2); EOSINOPHILS ABSOLUTE AUTO 0.23 K/mm3 (0.00-0.68); EOSINOPHILS PERCENT AUTO 3 % (0-6); Hematocrit 39.8 % (33.0-51.0); Hemoglobin 12.7 g/dL (11.5-16.0); IMMATURE GRAN ABSOLUTE AUTO 0.16 K/mm3 (0.00-0.10); IMMATURE GRAN PERCENT AUTO 2 % (0-1); LYMPHOCYTES ABSOLUTE AUTO 1.23 K/mm3 (0.84-5.20); LYMPHOCYTES PERCENT AUTO 14 % (21-46); MONOCYTES ABSOLUTE AUTO 0.77 K/mm3 (0.16-1.47); MONOCYTES PERCENT AUTO 9 % (4-13); Mean Corpuscular HGB 30.4 pg (26.0-34.0); Mean Corpuscular HGB Conc 31.9 g/dL (31.5-36.5); Mean Corpuscular Volume 95 fL (80-100); Mean Platelet Volume 10.6 fL (9.1-12.4); NEUTROPHILS ABSOLUTE AUTO 6.17 K/mm3 (1.96-9.15); NEUTROPHILS PERCENT AUTO 72 % (41-73); NRBC ABSOLUTE 0.02 K/mm3 (0.00-0.02); NRBC Auto 0.2 /100 WBC (0.0-0.2); Platelet Count 282 K/mm3 (150-400); RDW Standard Deviation 59.7 fL (35.1-46.3); Red Blood Cell Count 4.18 M/mm3 (3.80-5.20); White Blood Cell Count 8.57 K/mm3 (4.00-11.30)
[2023-11-06 04:23] LABS: Albumin, Blood 2.3 g/dL (3.4-5.0); Anion Gap 2 mmol/L (6-16); Blood Urea Nitrogen 55 mg/dL (8-24); Bun/Creatinine Ratio 42.3 (12.0-20.0); CO2, Blood 30 mmol/L (21-32); Calcium, Blood 8.5 mg/dL (8.5-10.1); Chloride, Blood 117 mmol/L (98-108); Glomerular Filtration Rate 44 (60-); Glucose, Blood 141 mg/dL (70-99); Magnesium, Blood 2.5 mg/dL (1.6-2.4); Phosphorus, Blood 2.5 mg/dL (2.5-4.9); Potassium, Blood 3.4 mmol/L (3.5-5.5); Sodium, Blood 149 mmol/L (136-145)
--- NOTE | 2023-11-06 06:30 | NUR ---
PATIENT BECOMING LESS CONFUSED OVERNIGHT. ORIENTED X2-3. AFIB RVR REQUIRING PRN METOPROLOL X1. 2L NC. FULL LIQUID DIET. AKBAR IN PLACE.
--- NOTE | 2023-11-06 07:27 | NUR ---
BEGINNING OF SHIFT Assumed care of pt at 0700. Bedside report received from Marcus DONAHUE. Pt A&O x 2. Answers questions, follows commands, verbalizes needs. Pleasant and cooperative with care. SpO2 90% or greater with 2 LPM NC. Afib per monitor with rate 95-125. BP stable.
[2023-11-06] MEDS ORDERED: CATAPRES0.3 MG PO (11:02)
--- NOTE | 2023-11-06 12:36 | NUR ---
Pt sitting up in recliner and has worked with PT. Noted that pt's hair is severely matted to head with copious amounts of skin debris in it. Discussed decision with patient and daughter to remove matts. Both people were agreeable. Pt's head shaved and cleansed.
--- NOTE | 2023-11-06 14:16 | NUR ---
BP noted as high. Scheduled lasix given. No improvement noted. Call placed to Dr Mccarthy to update and discuss that home med rec has been updated in the computer. Provider states he plans to reorder pt's clonidine and eliquis.
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
[2023-11-06 18:22] LABS: Potassium, Blood 3.4 mmol/L (3.5-5.5)
--- NOTE | 2023-11-06 18:57 | NUR ---
Call placed to Dr Paige with 1800 labs. New orders received.
[2023-11-07] VITALS (12 sets, daily range): BP systolic 87–120; BP diastolic 53–79
[2023-11-07 04:39] LABS: BASOPHILS ABSOLUTE AUTO 0.03 K/mm3 (0.00-0.23); BASOPHILS PERCENT AUTO 0 % (0-2); EOSINOPHILS ABSOLUTE AUTO 0.54 K/mm3 (0.00-0.68); EOSINOPHILS PERCENT AUTO 7 % (0-6); Hematocrit 37.5 % (33.0-51.0); Hemoglobin 11.8 g/dL (11.5-16.0); IMMATURE GRAN ABSOLUTE AUTO 0.23 K/mm3 (0.00-0.10); IMMATURE GRAN PERCENT AUTO 3 % (0-1); LYMPHOCYTES ABSOLUTE AUTO 1.53 K/mm3 (0.84-5.20); LYMPHOCYTES PERCENT AUTO 18 % (21-46); MONOCYTES ABSOLUTE AUTO 0.62 K/mm3 (0.16-1.47); MONOCYTES PERCENT AUTO 7 % (4-13); Mean Corpuscular HGB Conc 31.5 g/dL (31.5-36.5); Mean Corpuscular Volume 95 fL (80-100); Mean Platelet Volume 10.6 fL (9.1-12.4); NEUTROPHILS ABSOLUTE AUTO 5.39 K/mm3 (1.96-9.15); NEUTROPHILS PERCENT AUTO 65 % (41-73); NRBC ABSOLUTE 0.03 K/mm3 (0.00-0.02); NRBC Auto 0.4 /100 WBC (0.0-0.2); Platelet Count 266 K/mm3 (150-400); RDW Coefficient Variation 16.6 % (11.7-14.2); RDW Standard Deviation 58.4 fL (35.1-46.3); Red Blood Cell Count 3.93 M/mm3 (3.80-5.20); White Blood Cell Count 8.34 K/mm3 (4.00-11.30)
[2023-11-07 05:01] LABS: Magnesium, Blood 2.2 mg/dL (1.6-2.4)
[2023-11-07 05:02] LABS: Albumin, Blood 2.2 g/dL (3.4-5.0); Anion Gap 1 mmol/L (6-16); Blood Urea Nitrogen 40 mg/dL (8-24); Bun/Creatinine Ratio 37.4 (12.0-20.0); CO2, Blood 32 mmol/L (21-32); Calcium, Blood 8.3 mg/dL (8.5-10.1); Chloride, Blood 110 mmol/L (98-108); Creatinine, Blood 1.07 mg/dL (0.40-1.00); Glomerular Filtration Rate 56 (60-); Glucose, Blood 133 mg/dL (70-99); Phosphorus, Blood 1.6 mg/dL (2.5-4.9); Potassium, Blood 3.6 mmol/L (3.5-5.5); Sodium, Blood 143 mmol/L (136-145)
--- NOTE | 2023-11-07 06:43 | NUR ---
PATIENT AOX2-3. AFIB WITH RATE 50-80. BRIEFLY HYPOTENSIVE WITH SYS IN THE 80'S AND MAP OF 63. RESOLVED WITHOUT INTERVENTIONS. 2L NC. AKBAR IN PLACE WITH ADEQUATE OUTPUT.
--- NOTE | 2023-11-07 18:03 | NUR ---
SHIFT SUMMARY this rn assumed care at 0700. vital signs stable this shift. spo2 >95% on 2l nc. patient is afib in the 80s. respirations average 18-20s. patient is alert and oriented x3. perrla. patient uses call light appropriately and is able to make needs known. patient reports no pain, chest pain/pressure, or shortness of breath. see shift assessment for further detials. patient sat in the chair from before lunch time until before dinner. patient repositioned q2. speech theray saw the patient today and advanced diet. md diehl saw patient and discussed plan of care. plan of care is up to date.
--- NOTE | 2023-11-07 22:00 | NUR ---
ASSUMPTION OF CARE BEDSDIE SHIFT REPORT RECEVIED FROM DAY SHIFT RN. PT RESTING IN BED, ALERT AND ORIENTED. PT FOLLOWS COMMANDS, ABLE TO MAKE NEEDS KNOWN. PT WEAK BUT ABLE TO MOVE EXTREMITIES EQUALLY BILATERALLY. HR 60-80'S OCCASIONALLY DROPS INTO THE 40'S, AFIB. MAP >65, SBP 90-100'S. PT ON 2LPM VIA NC, OXYGEN SATURATION >95%. PT DENIES NAUSEA/VOMITING, ABDOMIN ROUND AND SOFT. BOWEL TONES ACTIVE IN ALL 4 QUEDRANTS. AKBAR PATENT DRAINING YELLOW URINE TO GRAVITY. PT HAS MULTIPLE WOUNDS/SKIN TEARS/RED AREAS THROUGHOUT HER BODY, ON HER BUTTOCKS AND IN BETWEEN SKIN FOLDS. MEPILEX IN PLACE TO BUTTOCK. PT COMPLAINING OF PAIN TO HER BUTTOCK, REPOSITIONED TO RELEIVE PRESSURE, AND MEDICATED PER EMAR. PICC LINE IN PLACE TO NANCIE INFUSING D5 AT 50MLS/HR. BED IN LOWEST POSITION, CALL LIGHT WITHIN REACH. CARE CONTINUES.
--- NOTE | 2023-11-07 22:04 | NUR ---
PT UPDATE CALLED AND SPOKE WITH CHEIKH MYERS EXTRUSION PRESS ADJUSTER REGUARDING PT BLOOD PRESSURE, SBP 90-100'S AND ORDERED METOPROLOL AND CLONIDINE. INSTRUCTED TO HOLD BOTH METOPROLOL AND CLONIDINE AT THIS TIME.
[2023-11-08] VITALS (18 sets, daily range): BP systolic 88–142; BP diastolic 50–88
[2023-11-08 04:37] LABS: BASOPHILS ABSOLUTE AUTO 0.04 K/mm3 (0.00-0.23); BASOPHILS PERCENT AUTO 1 % (0-2); EOSINOPHILS ABSOLUTE AUTO 0.53 K/mm3 (0.00-0.68); EOSINOPHILS PERCENT AUTO 7 % (0-6); Hematocrit 36.1 % (33.0-51.0); Hemoglobin 11.7 g/dL (11.5-16.0); IMMATURE GRAN ABSOLUTE AUTO 0.34 K/mm3 (0.00-0.10); IMMATURE GRAN PERCENT AUTO 4 % (0-1); LYMPHOCYTES ABSOLUTE AUTO 1.75 K/mm3 (0.84-5.20); LYMPHOCYTES PERCENT AUTO 22 % (21-46); MONOCYTES ABSOLUTE AUTO 0.61 K/mm3 (0.16-1.47); MONOCYTES PERCENT AUTO 8 % (4-13); Mean Corpuscular HGB 30.4 pg (26.0-34.0); Mean Corpuscular HGB Conc 32.4 g/dL (31.5-36.5); Mean Corpuscular Volume 94 fL (80-100); Mean Platelet Volume 10.4 fL (9.1-12.4); NEUTROPHILS ABSOLUTE AUTO 4.59 K/mm3 (1.96-9.15); NEUTROPHILS PERCENT AUTO 58 % (41-73); Platelet Count 228 K/mm3 (150-400); RDW Coefficient Variation 15.8 % (11.7-14.2); RDW Standard Deviation 54.1 fL (35.1-46.3); Red Blood Cell Count 3.85 M/mm3 (3.80-5.20); White Blood Cell Count 7.86 K/mm3 (4.00-11.30)
[2023-11-08 04:57] LABS: Albumin, Blood 2.1 g/dL (3.4-5.0); Anion Gap 2 mmol/L (6-16); Blood Urea Nitrogen 34 mg/dL (8-24); Bun/Creatinine Ratio 31.8 (12.0-20.0); CO2, Blood 31 mmol/L (21-32); Calcium, Blood 8.1 mg/dL (8.5-10.1); Chloride, Blood 107 mmol/L (98-108); Creatinine, Blood 1.07 mg/dL (0.40-1.00); Glomerular Filtration Rate 56 (60-); Glucose, Blood 126 mg/dL (70-99); Potassium, Blood 3.3 mmol/L (3.5-5.5); Sodium, Blood 140 mmol/L (136-145)
--- NOTE | 2023-11-08 06:17 | NUR ---
SHIFT SUMMARY PT RESTING IN BED, SLEEPING BUT AROUSABLE. PT WEAK, MOVES EXTREMITIES EQUALLY BILATERALLY WITH ENCOURAGEMENT. PT USES CALL LIGHT, ANSWERS QUESTIONS APPROPRIATELY AND FOLLOWS COMMANDS. HR 70-90'S AFIB, MAP >65, SBP 80-120'S. METOPROLOL AND CLONADINE HELD PER RICHARD SING JOURNAL CLERK DUE TO HR AND BP. PT ON NC AT 2LPM, OXYGEN SATURATION >95%. PT DENIES CP OR SOB. ABDOMEN ROUND AND SOFT, BOWEL TONES ACTIVE IN ALL FOUR QUADRANTS. AKBAR PATENT DRAINING TO GRAVITY. PICC LINE IN PLACE TO MEGAN INFUSING. PT HAS MULTIPLE WOUNDS/BRUISES/REDNESS THROUGHOUT BODY, PICTURES IN CHART. MULTIPLE MEPILEX IN PLACE. BED IN LOWEST POSITION, CALL LIGHT WITHIN REACH. CARE CONTINUES.
--- NOTE | 2023-11-08 07:00 | NUR ---
ASSUMPTION OF CARE: ASSUMED CARE OF PATIENT. PATIENT SLEEPING SOUNDLY IN THE ROOM. SPO2 >90% ON 2L VIA NC. SBP >120. MAPS >65. HR IN THE HIGH 90S. NO DISTRESS NOTED. POTASSIUM PHOSPHATE REPLACEMENT INFUSING. AKBAR IN PLACE AND DRAINING FREELY. URINE IS CLEAR, YELLOW.
--- NOTE | 2023-11-08 14:56 | NUR ---
REPORT: PATIENT BELONGINGS GATHERED. PATIENT'S BAG OF MEDICATIONS AND HER JEWELERY ARE PART OF THESE BELONGINGS. REPORT CALLED TO BAYLEE Crenshaw RN. PATIENT IS AWARE OF TRANSFER TO MEDICAL FLOOR.
--- NOTE | 2023-11-08 16:58 | NUR ---
PT WAS TRANSFERED FROM ICU AOX3 AND COOPERATIVE OF CARE. PT REQUESTED PAIN MEDICAITON AND DR YATES WAS NOTIFIED AND A NEW ORAL PAIN MEDICATION WAS ADDED. PT RESTING AT THIS TIME WITH CALL LIGHT IN REACH. NO DISTRESS NOTED WILL CONTINUE TO MONITOR.
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
[2023-11-09 04:16] VITALS: BP 151/90
[2023-11-09 05:40] LABS: Hematocrit 38.8 % (33.0-51.0); Hemoglobin 12.6 g/dL (11.5-16.0)
[2023-11-09 06:00] LABS: Albumin, Blood 2.3 g/dL (3.4-5.0); Anion Gap 3 mmol/L (6-16); Blood Urea Nitrogen 32 mg/dL (8-24); Bun/Creatinine Ratio 32.7 (12.0-20.0); CO2, Blood 31 mmol/L (21-32); Calcium, Blood 8.3 mg/dL (8.5-10.1); Chloride, Blood 108 mmol/L (98-108); Creatinine, Blood 0.98 mg/dL (0.40-1.00); Glomerular Filtration Rate 62 (60-); Glucose, Blood 119 mg/dL (70-99); Magnesium, Blood 2.3 mg/dL (1.6-2.4); Phosphorus, Blood 2.1 mg/dL (2.5-4.9); Potassium, Blood 3.4 mmol/L (3.5-5.5); Sodium, Blood 142 mmol/L (136-145)
[2023-11-09 07:37] VITALS: BP 146/76
[2023-11-09 16:33] VITALS: BP 161/96
--- NOTE | 2023-11-09 17:07 | NUR ---
PT AOX4 AND COOPERATIVE OF ALL CARE. PT HAS BEEN DOING HER BEST TO WORK WITH STAFF. PT IS A HEAVY TWO PERSON CHANGE IN BE AND IS LIFTED TO CHAIR. SHE HAS BEEN DOING WELL SITTING IN CHAIR TODAY AND ALSO TOLERATED A BED BATH WITH ALL OF HER BANDAGES CHANGES AND NEW IMPROVE PHOTOS OF WOUNDS PLACED IN CHART. PT USES CALL LIGHT APPROPRIATELY. NO DISTRESS NOTED AND CALL LIGHT WITHIN REACH WILL CONTINUE TO MONITOR.
[2023-11-09 19:24] VITALS: BP 166/85
[2023-11-10 02:52] VITALS: BP 156/77
[2023-11-10 05:44] LABS: Hematocrit 39.8 % (33.0-51.0); Hemoglobin 12.9 g/dL (11.5-16.0)
[2023-11-10 06:08] LABS: Albumin, Blood 2.4 g/dL (3.4-5.0); Anion Gap 3 mmol/L (6-16); Blood Urea Nitrogen 28 mg/dL (8-24); Bun/Creatinine Ratio 28.8 (12.0-20.0); CO2, Blood 33 mmol/L (21-32); Calcium, Blood 8.7 mg/dL (8.5-10.1); Chloride, Blood 105 mmol/L (98-108); Creatinine, Blood 0.97 mg/dL (0.40-1.00); Glomerular Filtration Rate 62 (60-); Glucose, Blood 133 mg/dL (70-99); Magnesium, Blood 1.9 mg/dL (1.6-2.4); Phosphorus, Blood 2.4 mg/dL (2.5-4.9); Potassium, Blood 3.8 mmol/L (3.5-5.5); Sodium, Blood 141 mmol/L (136-145)
[2023-11-10 07:40] VITALS: BP 154/78
--- NOTE | 2023-11-10 07:55 | NUR ---
SHIFT SUMMARY. PATIENT IS ALERT AND ORIENTED X4. PATIENT IS PLEASANT, CALLS APPROPRIATELY, AND SHE IS ABLE TO MAKE HER NEEDS KNOWN. PATIENT UP IN CHAIR AT BEGINNING OF SHIFT-PER PATIENT SHE IS MORE COMFORTABLE IN THE THE CHAIR. PATIENT UP IN CHAIR UNTIL AROUND 0100 THIS MORNING-PATIENT REPOSITIONED Q2H. PATIENT DOING HEEL PUMPS AND LEG WORKOUTS FROM PHYSICAL THERAPY. THIS MORNING PATIENT ABLE TO MOVE HER FEET MORE THAN AT THE BEGINNING OF SHIFT. PATIENT IS A 2 PERSON ASSIST WITH ROLL CHANGING AND LIFT. BED IS LOCKED IN THE LOWEST POSITION WITH CALL LIGHT IN REACH. NO S/S OF DISTRESS NOTED.
[2023-11-10 15:44] VITALS: BP 142/91
--- NOTE | 2023-11-10 17:17 | NUR ---
NO ACUTE CHANGES AT THIS TIME. PT CONTINUES TO BE POSITIVE AND COOPERATIVE WITH ALL CARE. PT IS A HEAVY TWO PERSON CHANGE IN BED AND NEEDS LIFT TO CHAIR. PT AND OT WORKED WITH PT TODAY. NO DISTRESS NOTED AND PT ABLE TO MAKE ALL NEEDS KNOWN. CALL LIGHT WITHIN REACH WILL CONTINUE TO MONITOR.
[2023-11-10 20:11] VITALS: BP 180/85
[2023-11-11 04:52] VITALS: BP 186/109
[2023-11-11 05:58] VITALS: BP 158/92
[2023-11-11 06:00] LABS: BASOPHILS ABSOLUTE AUTO 0.04 K/mm3 (0.00-0.23); BASOPHILS PERCENT AUTO 1 % (0-2); EOSINOPHILS ABSOLUTE AUTO 0.42 K/mm3 (0.00-0.68); EOSINOPHILS PERCENT AUTO 5 % (0-6); Hematocrit 41.5 % (33.0-51.0); Hemoglobin 13.4 g/dL (11.5-16.0); IMMATURE GRAN ABSOLUTE AUTO 0.39 K/mm3 (0.00-0.10); IMMATURE GRAN PERCENT AUTO 5 % (0-1); LYMPHOCYTES ABSOLUTE AUTO 1.95 K/mm3 (0.84-5.20); LYMPHOCYTES PERCENT AUTO 22 % (21-46); MONOCYTES ABSOLUTE AUTO 0.92 K/mm3 (0.16-1.47); MONOCYTES PERCENT AUTO 11 % (4-13); Mean Corpuscular HGB 30.5 pg (26.0-34.0); Mean Corpuscular HGB Conc 32.3 g/dL (31.5-36.5); Mean Corpuscular Volume 94 fL (80-100); NEUTROPHILS ABSOLUTE AUTO 5.03 K/mm3 (1.96-9.15); NEUTROPHILS PERCENT AUTO 57 % (41-73); NRBC ABSOLUTE 0.02 K/mm3 (0.00-0.02); NRBC Auto 0.2 /100 WBC (0.0-0.2); Platelet Count 246 K/mm3 (150-400); RDW Standard Deviation 54.3 fL (35.1-46.3); White Blood Cell Count 8.75 K/mm3 (4.00-11.30)
[2023-11-11 06:24] LABS: Albumin, Blood 2.6 g/dL (3.4-5.0); Albumin/Globulin Ratio 0.8 (0.8-1.8); Bilirubin, Total 0.6 mg/dL (0.1-1.0); Bun/Creatinine Ratio 26.1 (12.0-20.0); Calcium, Blood 8.9 mg/dL (8.5-10.1); Creatinine, Blood 0.96 mg/dL (0.40-1.00); Globulin, Blood 3.2 g/dL (2.2-4.0); Magnesium, Blood 1.9 mg/dL (1.6-2.4); Phosphorus, Blood 2.5 mg/dL (2.5-4.9); Potassium, Blood 3.9 mmol/L (3.5-5.5); Total Protein, Blood 5.8 g/dL (6.4-8.2)
--- NOTE | 2023-11-11 06:43 | NUR ---
SUMMARY: PT A/OX4, CALLS APPROPRIATELY TO SPECIFY NEEDS AND IS PLEASANT AND COOPERATIVE W/CARE. SHE REMAINS ON BEDREST W/LIFT REQUIRED OOB. PT C/O "NEEDING TO HAVE A BM BUT UNABLE" W/PRN MIRILAX RECEIVED FOR SM.PASTY STOOL. PRN OXYCODONE ALSO PROVIDED FOR TOLERABLE RELIEF OF GENERALIZED PAIN. TURN SCHEDULE MAINTAINED AND MEPILEXES INTACT TO AREAS OF SBD. HEEL PROTECTORS IN PLACE AND EXT'S FLOATED ON PILLOWS. NO ACUTE CHANGES, VSS/AFEBRILE. WCTM AND REPORT TO DAY RN.
[2023-11-11 08:08] VITALS: BP 156/86
[2023-11-11 12:48] LABS: SARS-Cov-2 (COVID-19) PCR, MMC NEGATIVE (NEGATIVE)
[2023-11-11] MEDS ORDERED: Acetaminophen650 M1 PO (13:09)
[2023-11-11] MEDS ORDERED: PAROEX473 ML MT (13:10)
[2023-11-11] MEDS ORDERED: MICONAZOLE NITR85 GM TOP (13:10)
[2023-11-11] MEDS ORDERED: MIRALAX17 GM PO (13:11)
[2023-11-11] MEDS ORDERED: Percocet 5-3251 EACH PO (13:11)
[2023-11-11] MEDS ORDERED: ARTIFICIAL TEAR15 M6 BOTHEYES (13:11)
[2023-11-11] MEDS ORDERED: POTA10T PO (13:12)
[2023-11-11] MEDS ORDERED: VISBIOME 112.51 EACH PO (13:13)
[2023-11-11] MEDS ORDERED: METAMUCIL POWD798 GM PO (13:13)
[2023-11-11] MEDS ORDERED: BUME2 PO (13:13)
--- NOTE | 2023-11-11 17:31 | NUR ---
PT DISCHARGED PT DISCHARGED, [facility] AT 1500. PICC LINE WAS REMOVED BY ICE SKATING INSTRUCTOR ALYSHA H PRIOR TO DC. URINARY CATH LEFT INPLACE FOR WOUND HEALING. PT WAS TRANSFERED VIA WHEELCHAIR ACCOMPANIED BY [employer]. BELONGINGS RELEASED TO THE PATIENT
== END 2023-11-11 17:33 | DRG 871 ==
LOC: ER 23:04 → ICUE 11-04 02:56 → MEDS 11-04 02:56 → ICUE 11-04 03:10 → MEDS 11-08 15:28
PROVIDERS: Emergency Medicine; Family Medicine; Hospitalist; Internal Medicine Nephrology; ADMIT Student in an Organized Health Care Education/Training Program
PROC: 3E03329 Introduction of Other Anti-infective into Peripheral Vein, Percutaneous Approach (ICD-10-PCS; principal; 2023-11-04)
PROC: 05HY33Z Insertion of Infusion Device into Upper Vein, Percutaneous Approach (ICD-10-PCS; 2023-11-04)
DX: A41.9 Sepsis, unspecified organism (principal); G92.8 Other toxic encephalopathy; I21.A1 Myocardial infarction type 2; N17.9 Acute kidney failure, unspecified; N39.0 Urinary tract infection, site not specified; M62.82 Rhabdomyolysis; I48.21 Permanent atrial fibrillation; I50.32 Chronic diastolic (congestive) heart failure; I13.0 Hypertensive heart and chronic kidney disease with heart failure and stage 1 through stage 4 chronic kidney disease, or unspecified chronic kidney disease; Z68.42 Body mass index [BMI] 45.0-49.9, adult; E87.0 Hyperosmolality and hypernatremia; E87.4 Mixed disorder of acid-base balance; R65.20 Severe sepsis without septic shock; N18.31 Chronic kidney disease, stage 3a; E86.9 Volume depletion, unspecified; E66.01 Morbid (severe) obesity due to excess calories; L30.4 Erythema intertrigo; E11.22 Type 2 diabetes mellitus with diabetic chronic kidney disease; I25.10 Atherosclerotic heart disease of native coronary artery without angina pectoris; E03.9 Hypothyroidism, unspecified; E86.0 Dehydration; K80.20 Calculus of gallbladder without cholecystitis without obstruction; E87.6 Hypokalemia; E88.09 Other disorders of plasma-protein metabolism, not elsewhere classified; L89.312 Pressure ulcer of right buttock, stage 2; E83.39 Other disorders of phosphorus metabolism; E87.70 Fluid overload, unspecified; R60.0 Localized edema; T50.2X5A Adverse effect of carbonic-anhydrase inhibitors, benzothiadiazides and other diuretics, initial encounter; Z88.8 Allergy status to other drugs, medicaments and biological substances; Z79.01 Long term (current) use of anticoagulants; Z79.890 Hormone replacement therapy; Z79.82 Long term (current) use of aspirin; Z96.642 Presence of left artificial hip joint; Z11.52 Encounter for screening for COVID-19; Z85.42 Personal history of malignant neoplasm of other parts of uterus; Z92.21 Personal history of antineoplastic chemotherapy; Z92.3 Personal history of irradiation; Z79.4 Long term (current) use of insulin; Z86.16 Personal history of COVID-19; Z60.2 Problems related to living alone; Z90.710 Acquired absence of both cervix and uterus; Z90.79 Acquired absence of other genital organ(s); Z90.722 Acquired absence of ovaries, bilateral
CPT/HCPCS: 0241U; 36415; 36569; 51702; 70450; 71045; 71250; 72125; 74176; 80047; 80053; 80069; 81001; 82140; 82550; 82803; 82947; 83036; 83605; 83690; 83735; 83880; 84100; 84132; 84295; 84443; 84484; 85014; 85018; 85025; 85610; 85730; 87040; 87077; 87086; 87186; 92526; 92610; 93005; 93010; 93971; 94762; 96361-59; 96374-59; 97110; 97110-CQ; 97162; 97165; 97530; 99285-25; A9270; C1751; G0480; J0360; J0696; J1644; J1815; J1940; J2270; J2310; J3480; J7030; J7050; J7060; J7070; U0002

== ENCOUNTER 2023-11-12 08:50 | Emergency (ER) | payer MEDICARE, OTHER ==
[~2023-11-12] VITALS: Ht 167.6 cm; Wt 158.8 kg
[~2023-11-12 08:50] MED LIST changes: +ARTIFICIAL TEAR15 M6 BOTHEYES; +Acetaminophen650 M1 PO; +ELIQUIS5 M2 PO; +HYDROCORTISON28.4 G4 TOP; +LOPE2C PO; +LUBRICANT EYE1 EAC1 BOTHEYES; +METAMUCIL POWD798 GM PO; +MIRALAX17 GM PO; +PAROEX473 ML MT; +Percocet 5-3251 EACH PO; +REDNESS RELIEVE15 M1 BOTHEYES; +VISBIOME 112.51 EACH PO
[2023-11-12 09:00] VITALS: BP 156/72
[2023-11-12 09:17] LABS: BASOPHILS ABSOLUTE AUTO 0.05 K/mm3 (0.00-0.23); BASOPHILS PERCENT AUTO 1 % (0-2); EOSINOPHILS ABSOLUTE AUTO 0.32 K/mm3 (0.00-0.68); EOSINOPHILS PERCENT AUTO 4 % (0-6); Hematocrit 40.8 % (33.0-51.0); Hemoglobin 13.2 g/dL (11.5-16.0); IMMATURE GRAN ABSOLUTE AUTO 0.14 K/mm3 (0.00-0.10); IMMATURE GRAN PERCENT AUTO 2 % (0-1); LYMPHOCYTES ABSOLUTE AUTO 1.52 K/mm3 (0.84-5.20); LYMPHOCYTES PERCENT AUTO 19 % (21-46); MONOCYTES ABSOLUTE AUTO 0.79 K/mm3 (0.16-1.47); MONOCYTES PERCENT AUTO 10 % (4-13); Mean Corpuscular HGB 29.9 pg (26.0-34.0); Mean Corpuscular HGB Conc 32.4 g/dL (31.5-36.5); Mean Corpuscular Volume 93 fL (80-100); Mean Platelet Volume 10.4 fL (9.1-12.4); NEUTROPHILS ABSOLUTE AUTO 5.24 K/mm3 (1.96-9.15); NEUTROPHILS PERCENT AUTO 65 % (41-73); Platelet Count 243 K/mm3 (150-400); RDW Coefficient Variation 15.9 % (11.7-14.2); RDW Standard Deviation 53.4 fL (35.1-46.3); Red Blood Cell Count 4.41 M/mm3 (3.80-5.20); White Blood Cell Count 8.06 K/mm3 (4.00-11.30)
[2023-11-12 09:36] LABS: Albumin, Blood 2.5 g/dL (3.4-5.0); Albumin/Globulin Ratio 0.7 (0.8-1.8); Bilirubin, Total 0.4 mg/dL (0.1-1.0); Bun/Creatinine Ratio 27.1 (12.0-20.0); Creatinine, Blood 0.92 mg/dL (0.40-1.00); Globulin, Blood 3.4 g/dL (2.2-4.0); Potassium, Blood 4.1 mmol/L (3.5-5.5); Total Protein, Blood 5.9 g/dL (6.4-8.2)
== END 2023-11-12 11:34 | disposition home or self-care (01) ==
LOC: ER 08:50
PROVIDERS: Emergency Medicine
DX: R07.9 Chest pain, unspecified (principal); I13.0 Hypertensive heart and chronic kidney disease with heart failure and stage 1 through stage 4 chronic kidney disease, or unspecified chronic kidney disease; I50.9 Heart failure, unspecified; E11.22 Type 2 diabetes mellitus with diabetic chronic kidney disease; E11.65 Type 2 diabetes mellitus with hyperglycemia; I48.91 Unspecified atrial fibrillation; I50.30 Unspecified diastolic (congestive) heart failure; E03.9 Hypothyroidism, unspecified; N18.9 Chronic kidney disease, unspecified; E66.01 Morbid (severe) obesity due to excess calories; Z68.41 Body mass index [BMI] 40.0-44.9, adult; Z96.642 Presence of left artificial hip joint; Z91.09 Other allergy status, other than to drugs and biological substances; Z88.8 Allergy status to other drugs, medicaments and biological substances; Z79.899 Other long term (current) drug therapy; Z79.890 Hormone replacement therapy; Z79.01 Long term (current) use of anticoagulants
CPT/HCPCS: 71045; 80053; 84484; 85025; 93005; 93010; 99285-25

== ENCOUNTER 2024-02-11 11:36 | Emergency (ER) | payer MEDICARE, OTHER ==
[~2024-02-11] VITALS: Ht 167.6 cm; Wt 162.4 kg
[2024-02-11 13:04] LABS: BASOPHILS ABSOLUTE AUTO 0.06 K/mm3 (0.00-0.23); BASOPHILS PERCENT AUTO 1 % (0-2); EOSINOPHILS ABSOLUTE AUTO 0.22 K/mm3 (0.00-0.68); EOSINOPHILS PERCENT AUTO 3 % (0-6); Hematocrit 38.3 % (33.0-51.0); Hemoglobin 12.1 g/dL (11.5-16.0); IMMATURE GRAN ABSOLUTE AUTO 0.13 K/mm3 (0.00-0.10); IMMATURE GRAN PERCENT AUTO 2 % (0-1); LYMPHOCYTES PERCENT AUTO 16 % (21-46); MONOCYTES ABSOLUTE AUTO 0.54 K/mm3 (0.16-1.47); MONOCYTES PERCENT AUTO 6 % (4-13); Mean Corpuscular HGB 31.3 pg (26.0-34.0); Mean Corpuscular HGB Conc 31.6 g/dL (31.5-36.5); Mean Corpuscular Volume 99 fL (80-100); Mean Platelet Volume 9.5 fL (9.1-12.4); NEUTROPHILS ABSOLUTE AUTO 6.15 K/mm3 (1.96-9.15); NEUTROPHILS PERCENT AUTO 73 % (41-73); NRBC ABSOLUTE 0.04 K/mm3 (0.00-0.02); NRBC Auto 0.5 /100 WBC (0.0-0.2); Platelet Count 344 K/mm3 (150-400); RDW Coefficient Variation 17.2 % (11.7-14.2); RDW Standard Deviation 62.3 fL (35.1-46.3); Red Blood Cell Count 3.86 M/mm3 (3.80-5.20)
[2024-02-11 13:18] LABS: Albumin, Blood 3.5 g/dL (3.4-5.0); Bilirubin, Total 0.4 mg/dL (0.1-1.0); Bun/Creatinine Ratio 23.5 (12.0-20.0); Calcium, Blood 9.1 mg/dL (8.5-10.1); Creatinine, Blood 1.36 mg/dL (0.40-1.00); Globulin, Blood 3.6 g/dL (2.2-4.0); Total Protein, Blood 7.1 g/dL (6.4-8.2)
[2024-02-11] MEDS ORDERED: NS 1,000 ML IV SCH (14:05)
[2024-02-11 15:40] LABS: Source, Urine Clean Catch
[2024-02-11 15:45] LABS: Appearance, Urine Hazy (Clear); Bilirubin, Urine Neg (Neg); Blood, Urine 2+ (Neg); Color, Urine Yellow (P-Yellow); Glucose Qualitative, Urine Neg (Neg); Ketones, Urine Neg (Neg); Leukocyte Esterase, Urine 3+ (Neg); Nitrite, Urine Pos (Neg); Protein, Urine 2+ (Neg); Urobilinogen, Urine NORM (Normal)
[2024-02-11 16:09] LABS: Bacteria Many /hpf; Renal Epithelial Rare /hpf (0-Rare); Squamous Epithelial Cells Few /hpf (Few); White Blood Cells, Urine 50-100 /hpf (0-5)
[2024-02-11] MEDS ORDERED: Cefdinir 300 MG Cap PO ONE (16:30)
[2024-02-11] MEDS ORDERED: CEFD300 PO (16:54)
[2024-02-11 17:45] VITALS: BP 148/76
== END 2024-02-11 19:02 | disposition home or self-care (01) ==
LOC: ER 11:36
PROVIDERS: Emergency Medicine; Student in an Organized Health Care Education/Training Program
DX: N17.9 Acute kidney failure, unspecified (principal); E86.0 Dehydration; N39.0 Urinary tract infection, site not specified; I13.0 Hypertensive heart and chronic kidney disease with heart failure and stage 1 through stage 4 chronic kidney disease, or unspecified chronic kidney disease; I50.9 Heart failure, unspecified; N18.9 Chronic kidney disease, unspecified; K21.9 Gastro-esophageal reflux disease without esophagitis; E66.9 Obesity, unspecified; Z68.43 Body mass index [BMI] 50.0-59.9, adult; Z79.01 Long term (current) use of anticoagulants; Z79.899 Other long term (current) drug therapy; Z88.8 Allergy status to other drugs, medicaments and biological substances; Z91.048 Other nonmedicinal substance allergy status; Z59.00 Homelessness unspecified
CPT/HCPCS: 80053; 81001; 83605; 85025; 93005; 93010; 96360; 99285-25; A9270; J7030

== ENCOUNTER 2024-02-16 06:00 | Observation (INO) | payer MEDICARE, OTHER ==
[~2024-02-16] VITALS: Ht 162.6 cm; Wt 143.7 kg
[~2024-02-16 06:00] MED LIST changes: +CEFD300 PO
[2024-02-16] MEDS ORDERED: MECL12.5 PO (06:08)
[2024-02-16] MEDS ORDERED: ELIQUIS5 M2 PO (06:11)
[2024-02-16 06:42] LABS: BASOPHILS ABSOLUTE AUTO 0.05 K/mm3 (0.00-0.23); BASOPHILS PERCENT AUTO 1 % (0-2); EOSINOPHILS ABSOLUTE AUTO 0.31 K/mm3 (0.00-0.68); EOSINOPHILS PERCENT AUTO 4 % (0-6); Hematocrit 38.1 % (33.0-51.0); Hemoglobin 12.1 g/dL (11.5-16.0); IMMATURE GRAN ABSOLUTE AUTO 0.08 K/mm3 (0.00-0.10); IMMATURE GRAN PERCENT AUTO 1 % (0-1); LYMPHOCYTES ABSOLUTE AUTO 1.77 K/mm3 (0.84-5.20); LYMPHOCYTES PERCENT AUTO 23 % (21-46); MONOCYTES ABSOLUTE AUTO 0.68 K/mm3 (0.16-1.47); MONOCYTES PERCENT AUTO 9 % (4-13); Mean Corpuscular HGB 31.5 pg (26.0-34.0); Mean Corpuscular HGB Conc 31.8 g/dL (31.5-36.5); Mean Corpuscular Volume 99 fL (80-100); Mean Platelet Volume 9.6 fL (9.1-12.4); NEUTROPHILS ABSOLUTE AUTO 4.93 K/mm3 (1.96-9.15); NEUTROPHILS PERCENT AUTO 63 % (41-73); NRBC ABSOLUTE 0.04 K/mm3 (0.00-0.02); NRBC Auto 0.5 /100 WBC (0.0-0.2); Platelet Count 263 K/mm3 (150-400); RDW Coefficient Variation 17.1 % (11.7-14.2); RDW Standard Deviation 61.9 fL (35.1-46.3); Red Blood Cell Count 3.84 M/mm3 (3.80-5.20); White Blood Cell Count 7.82 K/mm3 (4.00-11.30)
[2024-02-16] MEDS ORDERED: NS 1,000 ML IV SCH (06:50)
[2024-02-16 07:02] LABS: Albumin, Blood 3.1 g/dL (3.4-5.0); Albumin/Globulin Ratio 0.8 (0.8-1.8); Bilirubin, Total 0.4 mg/dL (0.1-1.0); Bun/Creatinine Ratio 20.9 (12.0-20.0); Calcium, Blood 8.9 mg/dL (8.5-10.1); Creatinine, Blood 1.39 mg/dL (0.40-1.00); Globulin, Blood 3.9 g/dL (2.2-4.0); Potassium, Blood 5.4 mmol/L (3.5-5.5)
[2024-02-16 07:46] LABS: Source, Urine Straight Cath
[2024-02-16 07:59] LABS: Bilirubin, Urine Neg (Neg); Blood, Urine Neg (Neg); Glucose Qualitative, Urine Neg (Neg); Ketones, Urine Neg (Neg); Leukocyte Esterase, Urine Neg (Neg); Nitrite, Urine Neg (Neg); Protein, Urine Neg (Neg); Specific Gravity, Urine 1.015 (1.003-1.022); Urobilinogen, Urine NORM (Normal)
[2024-02-16 08:00] LABS: Appearance, Urine Clear (Clear); Color, Urine Yellow (P-Yellow)
[2024-02-16] MEDS ORDERED: OXYCODONE-ACET1 EAC3 PO (23:10)
[2024-02-16] MEDS ORDERED: OxyCODONE 5 mg/Acetamin 325 mg TABLET PO ONE (23:30)
[2024-02-17] MEDS ORDERED: Metoprolol Tartrate 50 MG Tab PO SCH (09:00)
[2024-02-17] MEDS ORDERED: Apixaban 5 MG Tab PO SCH (09:00)
[2024-02-17] MEDS ORDERED: Losartan Potassium 50 MG Tab PO SCH (09:00)
[2024-02-18] MEDS ORDERED: Acetaminophen 325 MG TABLET PO PRN (00:10)
[2024-02-18] MEDS ORDERED: Ondansetron 4 MG TAB PO PRN (00:10)
[2024-02-18] MEDS ORDERED: OxyCODONE HCL 5 MG TAB PO PRN (00:10)
[2024-02-18 02:16] VITALS: BP 158/93
[2024-02-18 05:05] LABS: BASOPHILS ABSOLUTE AUTO 0.04 K/mm3 (0.00-0.23); BASOPHILS PERCENT AUTO 1 % (0-2); EOSINOPHILS ABSOLUTE AUTO 0.29 K/mm3 (0.00-0.68); EOSINOPHILS PERCENT AUTO 5 % (0-6); Hematocrit 35.9 % (33.0-51.0); Hemoglobin 11.1 g/dL (11.5-16.0); IMMATURE GRAN ABSOLUTE AUTO 0.04 K/mm3 (0.00-0.10); IMMATURE GRAN PERCENT AUTO 1 % (0-1); LYMPHOCYTES ABSOLUTE AUTO 1.56 K/mm3 (0.84-5.20); LYMPHOCYTES PERCENT AUTO 26 % (21-46); MONOCYTES ABSOLUTE AUTO 0.53 K/mm3 (0.16-1.47); MONOCYTES PERCENT AUTO 9 % (4-13); Mean Corpuscular HGB 30.9 pg (26.0-34.0); Mean Corpuscular HGB Conc 30.9 g/dL (31.5-36.5); Mean Corpuscular Volume 100 fL (80-100); Mean Platelet Volume 9.6 fL (9.1-12.4); NEUTROPHILS ABSOLUTE AUTO 3.55 K/mm3 (1.96-9.15); NEUTROPHILS PERCENT AUTO 59 % (41-73); Platelet Count 245 K/mm3 (150-400); RDW Coefficient Variation 16.8 % (11.7-14.2); RDW Standard Deviation 61.1 fL (35.1-46.3); Red Blood Cell Count 3.59 M/mm3 (3.80-5.20); White Blood Cell Count 6.01 K/mm3 (4.00-11.30)
--- NOTE | 2024-02-18 05:20 | NUR ---
Patient alert and oriented, admitted to unit from ED at 0200. VSS, patient resting comfortably in bed, photos taken of wounds noted at time of admission. PRN pain medication given x1. No other significant events overnight.
[2024-02-18 05:29] LABS: Albumin, Blood 2.9 g/dL (3.4-5.0); Albumin/Globulin Ratio 0.9 (0.8-1.8); Bilirubin, Total 0.3 mg/dL (0.1-1.0); Bun/Creatinine Ratio 18.5 (12.0-20.0); Creatinine, Blood 1.3 mg/dL (0.40-1.00); Globulin, Blood 3.3 g/dL (2.2-4.0); Total Protein, Blood 6.2 g/dL (6.4-8.2)
[2024-02-18] MEDS ORDERED: Levothyroxine Sodium 0.075 MG Tab PO SCH (06:00)
[2024-02-18] MEDS ORDERED: Levothyroxine Sodium 0.05 MG Tab PO SCH (06:00)
[2024-02-18 07:24] VITALS: BP 155/89
[2024-02-18] MEDS ORDERED: Insulin Regular 100 UNIT/ML 10ML Vial SC SCH (07:30)
[2024-02-18] MEDS ORDERED: Lactobacil 2-S.Thermo-Bifido 1 1 Cap PO SCH (09:00)
[2024-02-18] MEDS ORDERED: Docusate Sodium 100 MG Cap PO SCH (09:00)
[2024-02-18] MEDS ORDERED: Arginine/Glutamine/Calcium Hmb 1 Packet PO SCH (12:45)
[2024-02-18] MEDS ORDERED: DOCU100 PO (14:48)
[2024-02-18 15:17] VITALS: BP 143/81
--- NOTE | 2024-02-18 16:23 | NUR ---
SHIFT SUMMARY No acute changes to patient status, patient worked with PT/OT. Plan to DC to SNF for therapy. Vitals stable. Changed dressing to wound on buttock. PRN Oxycodone given once for pain. Reviewed discharge education with patient, she verbalized understanding.
--- NOTE | 2024-02-18 16:34 | NUR ---
Pt left unit at 1634. Report called to Manny at [facility].
== END 2024-02-18 16:36 ==
LOC: ER 06:00 → MEDS 02-17 06:01
PROVIDERS: Emergency Medicine; ADMIT Student in an Organized Health Care Education/Training Program
DX: R62.7 Adult failure to thrive (principal); E11.22 Type 2 diabetes mellitus with diabetic chronic kidney disease; I13.0 Hypertensive heart and chronic kidney disease with heart failure and stage 1 through stage 4 chronic kidney disease, or unspecified chronic kidney disease; N18.4 Chronic kidney disease, stage 4 (severe); I50.32 Chronic diastolic (congestive) heart failure; E03.9 Hypothyroidism, unspecified; I48.0 Paroxysmal atrial fibrillation; I25.10 Atherosclerotic heart disease of native coronary artery without angina pectoris; E66.01 Morbid (severe) obesity due to excess calories; Z88.8 Allergy status to other drugs, medicaments and biological substances; Z79.899 Other long term (current) drug therapy
CPT/HCPCS: 36415; 51701; 80053; 81003; 82947; 83036; 83735; 83880; 84439; 84443; 85025; 93005; 93010; 96360; 96361; 97110; 97112; 97162; 97165; 97530; 99285-25; A9270; G0378; J1815; J7030; P9612

== ENCOUNTER 2024-05-29 19:15 | Inpatient (IN) | payer MEDICARE, OTHER ==
[~2024-05-29] VITALS: Ht 167.6 cm; Wt 133.0 kg
[~2024-05-29 19:15] MED LIST changes: +DOCU100 PO; +MECL12.5 PO; +OXYCODONE-ACET1 EAC3 PO
[2024-05-29] MEDS ORDERED: METAMUCIL POWD575 GM PO (19:28)
[2024-05-29] MEDS ORDERED: IPRAT-ALBUT 0.5-3 ML INH (19:28)
[2024-05-29] MEDS ORDERED: LOPE2C PO (19:29)
[2024-05-29] MEDS ORDERED: MELATONIN5 M1 PO (19:32)
[2024-05-29] MEDS ORDERED: CITALOPRAM HBR10 MG PO (19:32)
[2024-05-29] MEDS ORDERED: Ipratropium/Albuterol SulF 2.5-0.5MG/3 ML Amp INH ONE (19:45)
[2024-05-29 19:49] LABS: BASOPHILS ABSOLUTE AUTO 0.04 K/mm3 (0.00-0.23); BASOPHILS PERCENT AUTO 1 % (0-2); EOSINOPHILS ABSOLUTE AUTO 0.25 K/mm3 (0.00-0.68); EOSINOPHILS PERCENT AUTO 3 % (0-6); Hematocrit 44.2 % (33.0-51.0); Hemoglobin 14.3 g/dL (11.5-16.0); IMMATURE GRAN ABSOLUTE AUTO 0.02 K/mm3 (0.00-0.10); IMMATURE GRAN PERCENT AUTO 0 % (0-1); LYMPHOCYTES ABSOLUTE AUTO 1.31 K/mm3 (0.84-5.20); LYMPHOCYTES PERCENT AUTO 16 % (21-46); MONOCYTES ABSOLUTE AUTO 0.65 K/mm3 (0.16-1.47); MONOCYTES PERCENT AUTO 8 % (4-13); Mean Corpuscular HGB 28.7 pg (26.0-34.0); Mean Corpuscular HGB Conc 32.4 g/dL (31.5-36.5); Mean Corpuscular Volume 89 fL (80-100); Mean Platelet Volume 9.6 fL (9.1-12.4); NEUTROPHILS ABSOLUTE AUTO 5.99 K/mm3 (1.96-9.15); NEUTROPHILS PERCENT AUTO 73 % (41-73); Platelet Count 259 K/mm3 (150-400); RDW Coefficient Variation 15.9 % (11.7-14.2); RDW Standard Deviation 51.8 fL (35.1-46.3); Red Blood Cell Count 4.98 M/mm3 (3.80-5.20); White Blood Cell Count 8.26 K/mm3 (4.00-11.30)
[2024-05-29 20:12] LABS: Albumin, Blood 3.2 g/dL (3.4-5.0); Albumin/Globulin Ratio 0.8 (0.8-1.8); Bilirubin, Total 0.5 mg/dL (0.1-1.0); Bun/Creatinine Ratio 24.3 (12.0-20.0); Creatinine, Blood 1.03 mg/dL (0.40-1.00); Globulin, Blood 3.9 g/dL (2.2-4.0); Potassium, Blood 4.7 mmol/L (3.5-5.5); Total Protein, Blood 7.1 g/dL (6.4-8.2)
[2024-05-29 20:37] LABS: Influenza A, PCR NEGATIVE (NEGATIVE); Influenza B, PCR NEGATIVE (NEGATIVE); Resp Syncytial Virus, PCR NEGATIVE (NEGATIVE); SARS-Cov-2 (COVID-19) PCR, MMC NEGATIVE (NEGATIVE)
[2024-05-30] VITALS (7 sets, daily range): BP systolic 126–190; BP diastolic 78–115
[2024-05-30 00:05] LABS: Base Excess Venous 4.4 mmol/L; Bicarbonate Venous 27.2 mmol/L (24.0-30.0); PCO2 Venous 48.5 mmHg (38-42); pH Blood Venous 7.39 (7.34-7.37)
[2024-05-30] MEDS ORDERED: Loperamide HCl 2 MG Cap PO PRN (00:10)
[2024-05-30] MEDS ORDERED: OxyCODONE 5 mg/Acetamin 325 mg TABLET PO PRN (00:15)
[2024-05-30] MEDS ORDERED: Acetaminophen 325 MG TABLET PO PRN (00:15)
[2024-05-30] MEDS ORDERED: Ipratropium/Albuterol SulF 2.5-0.5MG/3 ML Amp INH SCH (00:15)
[2024-05-30] MEDS ORDERED: Albuterol 2.5 MG/3 ML VIAL INH PRN (00:20)
[2024-05-30] MEDS ORDERED: Azithromycin 250 MG Tab PO SCH (01:00)
[2024-05-30] MEDS ORDERED: Azithromycin 200 MG/5 ML SUSP 5ML UDC PO SCH (01:00)
[2024-05-30] MEDS ORDERED: MethylPREDNISolone Sod Succ 125 MG Vial IV SCH (01:00)
[2024-05-30] MEDS ORDERED: Melatonin 5 MG Tablet PO ONE (01:15)
[2024-05-30 04:28] LABS: BASOPHILS ABSOLUTE AUTO 0.04 K/mm3 (0.00-0.23); BASOPHILS PERCENT AUTO 0 % (0-2); EOSINOPHILS ABSOLUTE AUTO 0.13 K/mm3 (0.00-0.68); EOSINOPHILS PERCENT AUTO 1 % (0-6); Hematocrit 44.8 % (33.0-51.0); Hemoglobin 14.4 g/dL (11.5-16.0); IMMATURE GRAN ABSOLUTE AUTO 0.05 K/mm3 (0.00-0.10); IMMATURE GRAN PERCENT AUTO 1 % (0-1); LYMPHOCYTES ABSOLUTE AUTO 0.98 K/mm3 (0.84-5.20); LYMPHOCYTES PERCENT AUTO 9 % (21-46); MONOCYTES ABSOLUTE AUTO 0.27 K/mm3 (0.16-1.47); MONOCYTES PERCENT AUTO 3 % (4-13); Mean Corpuscular HGB 28.9 pg (26.0-34.0); Mean Corpuscular HGB Conc 32.1 g/dL (31.5-36.5); Mean Corpuscular Volume 90 fL (80-100); Mean Platelet Volume 9.8 fL (9.1-12.4); NEUTROPHILS ABSOLUTE AUTO 9.28 K/mm3 (1.96-9.15); NEUTROPHILS PERCENT AUTO 86 % (41-73); Platelet Count 266 K/mm3 (150-400); RDW Standard Deviation 52.9 fL (35.1-46.3); Red Blood Cell Count 4.99 M/mm3 (3.80-5.20); White Blood Cell Count 10.75 K/mm3 (4.00-11.30)
[2024-05-30 04:49] LABS: Albumin, Blood 3.3 g/dL (3.4-5.0); Albumin/Globulin Ratio 0.8 (0.8-1.8); Bilirubin, Total 0.5 mg/dL (0.1-1.0); Calcium, Blood 9.1 mg/dL (8.5-10.1); Globulin, Blood 3.9 g/dL (2.2-4.0); Potassium, Blood 4.9 mmol/L (3.5-5.5); Total Protein, Blood 7.2 g/dL (6.4-8.2)
[2024-05-30] MEDS ORDERED: Levothyroxine Sodium 0.05 MG Tab PO SCH (06:00)
[2024-05-30] MEDS ORDERED: Atorvastatin 10 MG Tab PO SCH (09:00)
[2024-05-30] MEDS ORDERED: Losartan Potassium 50 MG Tab PO SCH (09:00)
[2024-05-30] MEDS ORDERED: Metoprolol Tartrate 50 MG Tab PO SCH (09:00)
[2024-05-30] MEDS ORDERED: Citalopram Hydrobromide 10 MG TAB PO SCH (09:00)
[2024-05-30] MEDS ORDERED: Apixaban 5 MG Tab PO SCH (09:00)
[2024-05-30] MEDS ORDERED: CefTRIAXone Sodium 2,000 MG in NS 100 ML IV SCH (13:00)
[2024-05-30] MEDS ORDERED: Bumetanide 1 MG Tab PO SCH (13:00)
[2024-05-30] MEDS ORDERED: Diltiazem HCl 5 MG / ML 10ML Vial IV PRN (16:15)
[2024-05-30] MEDS ORDERED: Diltiazem HCl 5 MG / ML 5ML Vial IV PRN (16:35)
--- NOTE | 2024-05-30 18:23 | NUR ---
PATIENT GIVEN 10MG OF DILTIAZEM TO TREAT A-FIB IN THE 140'S AT 1638. HR CAME DOWN FOR AN HOUR TO 90-120'S AND IS NOW BACK UP TO THE 140'S. DR. BENNETT CONTACTED AND WILL PLACE ORDERS.
[2024-05-30] MEDS ORDERED: dilTIAZem HCL 60 MG TAB PO SCH ×2 (18:45→21:00)
[2024-05-30] MEDS ORDERED: Melatonin 5 MG Tablet PO SCH (21:00)
--- NOTE | 2024-05-30 21:57 | NUR ---
PATIENT ARRIVED [facility] ROOM 362, RECEIVED REPORT FROM ROWAN NAJERA. PATIENT ARRIVED WITH ALL BELONGINGS IN NO APPARENT DISTRESS. HR AFIB IN 100-110S. CARDIZEM GTT INITIATED. BP IMPROVING. CALL LIGHT WITHIN REACH AND ALL FALL RISK PRECAUTIONS IN PLACE.
[2024-05-31] MEDS ORDERED: Ipratropium/Albuterol SulF 2.5-0.5MG/3 ML Amp INH SCH (00:15)
[2024-05-31 03:53] VITALS: BP 176/84
--- NOTE | 2024-05-31 04:17 | NUR ---
shift summary Patient's HR came down to the 60-70s around 0200. Cardizem gtt put on standby. Patient's BP elevated in the 170s. PRN percocet given for BL shoulder pain from arthritis. A&Ox4, talkative and did not sleep much despite melatonin administration. purewick in place for urinary incontinence, getting OOB with Assist x 2. OT/PT eval pending. Patient to return to [facility] on discharge. On IV antibiotics for PNA.
[2024-05-31 07:46] VITALS: BP 180/105
[2024-05-31 08:56] VITALS: BP 152/71
[2024-05-31 09:04] LABS: BASOPHILS ABSOLUTE AUTO 0.02 K/mm3 (0.00-0.23); BASOPHILS PERCENT AUTO 0 % (0-2); EOSINOPHILS PERCENT AUTO 0 % (0-6); Hematocrit 46.6 % (33.0-51.0); Hemoglobin 15.2 g/dL (11.5-16.0); IMMATURE GRAN ABSOLUTE AUTO 0.07 K/mm3 (0.00-0.10); IMMATURE GRAN PERCENT AUTO 1 % (0-1); LYMPHOCYTES ABSOLUTE AUTO 1.49 K/mm3 (0.84-5.20); LYMPHOCYTES PERCENT AUTO 11 % (21-46); MONOCYTES ABSOLUTE AUTO 0.45 K/mm3 (0.16-1.47); MONOCYTES PERCENT AUTO 3 % (4-13); Mean Corpuscular HGB 28.4 pg (26.0-34.0); Mean Corpuscular HGB Conc 32.6 g/dL (31.5-36.5); Mean Corpuscular Volume 87 fL (80-100); Mean Platelet Volume 9.5 fL (9.1-12.4); NEUTROPHILS ABSOLUTE AUTO 11.91 K/mm3 (1.96-9.15); NEUTROPHILS PERCENT AUTO 86 % (41-73); Platelet Count 356 K/mm3 (150-400); Red Blood Cell Count 5.36 M/mm3 (3.80-5.20); White Blood Cell Count 13.94 K/mm3 (4.00-11.30)
[2024-05-31 09:18] LABS: Albumin, Blood 3.8 g/dL (3.4-5.0); Albumin/Globulin Ratio 0.8 (0.8-1.8); Bilirubin, Total 0.4 mg/dL (0.1-1.0); Bun/Creatinine Ratio 30.2 (12.0-20.0); Calcium, Blood 9.8 mg/dL (8.5-10.1); Creatinine, Blood 1.29 mg/dL (0.40-1.00); Globulin, Blood 4.6 g/dL (2.2-4.0); Potassium, Blood 4.7 mmol/L (3.5-5.5); Total Protein, Blood 8.4 g/dL (6.4-8.2)
[2024-05-31 11:36] VITALS: BP 169/102
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
[2024-05-31] MEDS ORDERED: Miconazole Nitrate 2% 85 GM PWD TOP SCH (13:00)
[2024-05-31 15:32] VITALS: BP 159/83
[2024-05-31] MEDS ORDERED: Insulin Human Lispro 100 Units/ML 3ML Syringe SC SCH ×2 (16:30→21:00)
--- NOTE | 2024-05-31 17:13 | NUR ---
SHIFT SUMMARY PT REMAINS ALERT AND ORIENTED. BP STABLE THIS EVENING. HR REMAINS AFIB 70-80'S. O2 SATS REMAIN ABOVE 90% ON RA. PT COMPLAINS OF PAIN TO SHOULDERS AND BACK AT TIMES THROUGHOUT SHIFT AND MEDICATED PER EMAR. PUREWICK DEVICE IN PLACE FOR INCONTINENCE. BM THIS SHIFT. PT UP TO THE SHOWER TODAY. DISCUSSED BLOOD SUGAR LEVELS WITH DR. BOWENS AND NEW ORDERS PROVIDED. PT EDUCATED ON INSULIN COVERAGE. PT UP IN RECLINER EATING DINNER AT THIS TIME. WILL CONTINUE TO MONITOR AND REPORT TO ONCOMING ROWAN
--- NOTE | 2024-05-31 20:27 | NUR ---
SSI ORDER CHANGE PATIENT'S BEDTIME BGL IS 384, CURRENTLY ONLY ORDERS TO TREAT AC, NO HS ORDER. HOT BOX OPERATOR RESIDENT PAGED, ORDER RECEIVED TO CHANGE SSI ORDERS TO TREAT ACHS BGL CHECKS.
[2024-05-31 20:34] VITALS: BP 139/73
[2024-06-01 03:16] VITALS: BP 135/73
--- NOTE | 2024-06-01 04:10 | NUR ---
SHIFT SUMMARY- PATIENT WAS ABLE TO SLEEP FOR A SHORT AMOUNT OF TIME TONIGHT, SHE HAD NOT SLEPT IN 3 DAYS. WHILE ASLEEP HER HR DROPPED DOWN TO 37, UNSUSTAINED. SUSTAINED IN THE 50'S- AFIB. ASYMPTOMATIC. WHILE AWAKE HR RUNS IN THE 60S. PATIENT A&OX4, VERY TALKATIVE. ENCOURAGED TO REST. BP IMPROVED, USING THE PUREWICK AT NIGHT DUE TO URINARY INCONTINENCE, UP OOB DURING THE DAY 1 ASSIST. PLAN IS TO DC BACK TO [facility] TODAY.
[2024-06-01 04:16] LABS: BASOPHILS ABSOLUTE AUTO 0.02 K/mm3 (0.00-0.23); BASOPHILS PERCENT AUTO 0 % (0-2); EOSINOPHILS PERCENT AUTO 0 % (0-6); Hematocrit 43.6 % (33.0-51.0); Hemoglobin 14.1 g/dL (11.5-16.0); IMMATURE GRAN ABSOLUTE AUTO 0.06 K/mm3 (0.00-0.10); IMMATURE GRAN PERCENT AUTO 1 % (0-1); LYMPHOCYTES ABSOLUTE AUTO 1.02 K/mm3 (0.84-5.20); LYMPHOCYTES PERCENT AUTO 8 % (21-46); MONOCYTES PERCENT AUTO 3 % (4-13); Mean Corpuscular HGB 28.8 pg (26.0-34.0); Mean Corpuscular HGB Conc 32.3 g/dL (31.5-36.5); Mean Corpuscular Volume 89 fL (80-100); Mean Platelet Volume 9.9 fL (9.1-12.4); NEUTROPHILS ABSOLUTE AUTO 10.88 K/mm3 (1.96-9.15); NEUTROPHILS PERCENT AUTO 88 % (41-73); Platelet Count 309 K/mm3 (150-400); RDW Coefficient Variation 16.1 % (11.7-14.2); RDW Standard Deviation 52.9 fL (35.1-46.3); Red Blood Cell Count 4.89 M/mm3 (3.80-5.20); White Blood Cell Count 12.38 K/mm3 (4.00-11.30)
[2024-06-01 04:46] LABS: Albumin, Blood 3.2 g/dL (3.4-5.0); Albumin/Globulin Ratio 0.8 (0.8-1.8); Bilirubin, Total 0.2 mg/dL (0.1-1.0); Bun/Creatinine Ratio 33.8 (12.0-20.0); Calcium, Blood 9.2 mg/dL (8.5-10.1); Creatinine, Blood 1.51 mg/dL (0.40-1.00); Globulin, Blood 3.9 g/dL (2.2-4.0); Potassium, Blood 4.6 mmol/L (3.5-5.5); Total Protein, Blood 7.1 g/dL (6.4-8.2)
--- NOTE | 2024-06-01 05:40 | NUR ---
weight caller called in non-critical but elevated BGL on AM labork to contract law specialist MD, patient on solumedrol, started on low SSI on day shift just yesterday. MD made aware of elevated BGL at bedtime coverage, due to no response to bedtime insulin correction, patient is being started on insulin glargine.
[2024-06-01] MEDS ORDERED: Insulin Glargine-Yfgn 100 Unit/mL 3 ML SYR SC ONE (06:00)
[2024-06-01 08:05] VITALS: BP 146/90
[2024-06-01] MEDS ORDERED: Bumetanide 1 MG Tab PO SCH (09:00)
[2024-06-01] MEDS ORDERED: DILT60 PO (11:05)
[2024-06-01] MEDS ORDERED: AMOCLA875 PO (11:05)
[2024-06-01] MEDS ORDERED: METFORMIN HCL1000 MG PO (11:06)
[2024-06-01] MEDS ORDERED: MICONAZOLE NITR85 GM TOP (11:08)
[2024-06-01] MEDS ORDERED: Peg 400/Hypromellose/Glycerin 15 DROP/ML BTL BOTHEYES PRN (11:40)
[2024-06-01 11:47] VITALS: BP 119/60
[2024-06-01] MEDS ORDERED: MetFORMIN HCl 500 mg PO SCH (12:00)
--- NOTE | 2024-06-01 15:23 | NUR ---
Plan to Discharge Pt A&O x4. VSS. Spo2 > 92% on RA. Monitor showing AFIB, HR 60s-70s prior to PO cardizem administration this AM. Afternoon cardizem dose held d/t HR touching down into 40s-50s. Pt CBGs elevated. MD Cordero aware & started pt on PO metformin. Pt awaiting transport back to [facility].
[2024-06-01 16:35] VITALS: BP 163/99
--- NOTE | 2024-06-01 17:49 | NUR ---
Discharge Radha Garcia Pt A&O x4. VSS. Discharge instructions reviewed w/ pt & sent with pt in addition to packet for Radha Garcia. Hard script included in pt packet (see copy in chart). PIV removed. Pt taken out in wc w/ belongings @ approx 1700.
[2024-06-01] MEDS ORDERED: Lactobacil 2-S.Thermo-Bifido 1 1 Cap PO SCH (21:00)
[2024-06-02] MEDS ORDERED: BISA10S PR (13:13)
[2024-06-02] MEDS ORDERED: MECL12.5 PO ×2 (13:15→18:48)
[2024-06-02] MEDS ORDERED: [UNRECOGNIZED DRUG - OTHER] PO (18:54)
== END 2024-06-01 17:05 | DRG 193 ==
LOC: ER 19:15 → ERHOLD 19:16 → PCU 05-30 12:19 → ERHOLD 05-30 12:19 → MEDS 05-30 14:15 → PCU 05-30 21:21
PROVIDERS: Family Medicine; Student in an Organized Health Care Education/Training Program; ADMIT Family Medicine
DX: J18.9 Pneumonia, unspecified organism (principal); J96.01 Acute respiratory failure with hypoxia; I48.20 Chronic atrial fibrillation, unspecified; I13.0 Hypertensive heart and chronic kidney disease with heart failure and stage 1 through stage 4 chronic kidney disease, or unspecified chronic kidney disease; F32.A Depression, unspecified; E78.5 Hyperlipidemia, unspecified; E03.9 Hypothyroidism, unspecified; E11.22 Type 2 diabetes mellitus with diabetic chronic kidney disease; I50.9 Heart failure, unspecified; I25.10 Atherosclerotic heart disease of native coronary artery without angina pectoris; N18.30 Chronic kidney disease, stage 3 unspecified; K21.9 Gastro-esophageal reflux disease without esophagitis; E66.9 Obesity, unspecified; L93.0 Discoid lupus erythematosus; Z79.01 Long term (current) use of anticoagulants; Z86.718 Personal history of other venous thrombosis and embolism; Z86.711 Personal history of pulmonary embolism; Z88.8 Allergy status to other drugs, medicaments and biological substances; Z91.048 Other nonmedicinal substance allergy status; Z79.899 Other long term (current) drug therapy; Z79.51 Long term (current) use of inhaled steroids; Z79.890 Hormone replacement therapy; I25.2 Old myocardial infarction; Z87.442 Personal history of urinary calculi; Z90.49 Acquired absence of other specified parts of digestive tract; Z98.890 Other specified postprocedural states; Z90.710 Acquired absence of both cervix and uterus; Z90.722 Acquired absence of ovaries, bilateral; Z96.642 Presence of left artificial hip joint; Z68.32 Body mass index [BMI] 32.0-32.9, adult
CPT/HCPCS: 0241U; 36415; 71045; 71260; 80053; 82803; 82947; 83036; 83880; 84145; 84484; 85025; 93005; 93010; 94640; 94664; 94760; 94762; 96374; 96376; 97162; 97530; 99285-25; A9270; G0378; J0696; J1815; J2919; Q9967

== ENCOUNTER 2024-06-02 11:51 | Observation (INO) | payer MEDICARE, OTHER ==
[~2024-06-02] VITALS: Ht 167.6 cm; Wt 130.9 kg
[~2024-06-02 11:51] MED LIST changes: +AMOCLA875 PO; +CITALOPRAM HBR10 MG PO; +DILT60 PO; +MELATONIN5 M1 PO; +METAMUCIL POWD575 GM PO; +METFORMIN HCL1000 MG PO
[2024-06-02] MEDS ORDERED: BISA10S PR (13:13)
[2024-06-02] MEDS ORDERED: MECL12.5 PO ×2 (13:15→18:48)
[2024-06-02 13:22] LABS: BASOPHILS ABSOLUTE AUTO 0.03 K/mm3 (0.00-0.23); BASOPHILS PERCENT AUTO 0 % (0-2); EOSINOPHILS ABSOLUTE AUTO 0.01 K/mm3 (0.00-0.68); EOSINOPHILS PERCENT AUTO 0 % (0-6); Hematocrit 46.6 % (33.0-51.0); Hemoglobin 15.5 g/dL (11.5-16.0); IMMATURE GRAN PERCENT AUTO 1 % (0-1); LYMPHOCYTES ABSOLUTE AUTO 1.46 K/mm3 (0.84-5.20); LYMPHOCYTES PERCENT AUTO 12 % (21-46); MONOCYTES ABSOLUTE AUTO 1.17 K/mm3 (0.16-1.47); MONOCYTES PERCENT AUTO 10 % (4-13); Mean Corpuscular HGB 29.1 pg (26.0-34.0); Mean Corpuscular HGB Conc 33.3 g/dL (31.5-36.5); Mean Corpuscular Volume 88 fL (80-100); Mean Platelet Volume 9.9 fL (9.1-12.4); NEUTROPHILS ABSOLUTE AUTO 9.51 K/mm3 (1.96-9.15); NEUTROPHILS PERCENT AUTO 78 % (41-73); Platelet Count 316 K/mm3 (150-400); RDW Coefficient Variation 16.1 % (11.7-14.2); RDW Standard Deviation 51.9 fL (35.1-46.3); Red Blood Cell Count 5.32 M/mm3 (3.80-5.20); White Blood Cell Count 12.28 K/mm3 (4.00-11.30)
[2024-06-02 13:40] LABS: Albumin, Blood 3.6 g/dL (3.4-5.0); Albumin/Globulin Ratio 0.9 (0.8-1.8); Bilirubin, Total 0.3 mg/dL (0.1-1.0); Bun/Creatinine Ratio 43.3 (12.0-20.0); Calcium, Blood 9.1 mg/dL (8.5-10.1); Creatinine, Blood 1.27 mg/dL (0.40-1.00); Globulin, Blood 4.2 g/dL (2.2-4.0); Total Protein, Blood 7.8 g/dL (6.4-8.2)
[2024-06-02] MEDS ORDERED: Ipratropium/Albuterol SulF 2.5-0.5MG/3 ML Amp INH ONE (14:00)
[2024-06-02] MEDS ORDERED: NS 1,000 ML IV SCH (16:50)
[2024-06-02] MEDS ORDERED: Acetaminophen 325 MG TABLET PO PRN (17:25)
[2024-06-02] MEDS ORDERED: OxyCODONE 5 mg/Acetamin 325 mg TABLET PO PRN (17:30)
[2024-06-02] MEDS ORDERED: Ipratropium/Albuterol SulF 2.5-0.5MG/3 ML Amp INH SCH (17:30)
[2024-06-02] MEDS ORDERED: Bisacodyl 10 MG Supp PR PRN (17:30)
[2024-06-02] MEDS ORDERED: Polyethylene Glycol 3350 17 gm PO PRN (17:35)
[2024-06-02] MEDS ORDERED: Loperamide HCl 2 MG Cap PO PRN (17:35)
[2024-06-02 18:36] VITALS: BP 144/99
[2024-06-02] MEDS ORDERED: [UNRECOGNIZED DRUG - OTHER] PO (18:54)
[2024-06-02 20:57] VITALS: BP 161/100
[2024-06-02] MEDS ORDERED: Melatonin 5 MG Tablet PO SCH (21:00)
[2024-06-02] MEDS ORDERED: Metoprolol Tartrate 50 MG Tab PO SCH (21:00)
[2024-06-02] MEDS ORDERED: Insulin Human Lispro 100 Units/ML 3ML Syringe SC SCH (21:00)
[2024-06-02] MEDS ORDERED: TraZODone HCl 100 MG Tab PO SCH (21:00)
[2024-06-02] MEDS ORDERED: Apixaban 5 MG Tab PO SCH (21:00)
[2024-06-02] MEDS ORDERED: Amoxicillin/Clavulanate K 875 MG Tab PO SCH (21:00)
[2024-06-02] MEDS ORDERED: Docusate Sodium 100 MG Cap PO SCH (21:00)
[2024-06-02] MEDS ORDERED: Losartan Potassium 50 MG Tab PO SCH (21:00)
[2024-06-02 23:40] VITALS: BP 141/95
[2024-06-03 04:01] VITALS: BP 142/95
[2024-06-03 04:26] LABS: BASOPHILS ABSOLUTE AUTO 0.02 K/mm3 (0.00-0.23); BASOPHILS PERCENT AUTO 0 % (0-2); EOSINOPHILS ABSOLUTE AUTO 0.21 K/mm3 (0.00-0.68); EOSINOPHILS PERCENT AUTO 2 % (0-6); Hematocrit 45.4 % (33.0-51.0); Hemoglobin 14.6 g/dL (11.5-16.0); IMMATURE GRAN ABSOLUTE AUTO 0.08 K/mm3 (0.00-0.10); IMMATURE GRAN PERCENT AUTO 1 % (0-1); LYMPHOCYTES ABSOLUTE AUTO 1.89 K/mm3 (0.84-5.20); LYMPHOCYTES PERCENT AUTO 18 % (21-46); MONOCYTES PERCENT AUTO 10 % (4-13); Mean Corpuscular HGB 28.7 pg (26.0-34.0); Mean Corpuscular HGB Conc 32.2 g/dL (31.5-36.5); Mean Corpuscular Volume 89 fL (80-100); Mean Platelet Volume 9.5 fL (9.1-12.4); NEUTROPHILS ABSOLUTE AUTO 7.14 K/mm3 (1.96-9.15); NEUTROPHILS PERCENT AUTO 69 % (41-73); Platelet Count 296 K/mm3 (150-400); RDW Coefficient Variation 16.1 % (11.7-14.2); RDW Standard Deviation 52.8 fL (35.1-46.3); Red Blood Cell Count 5.09 M/mm3 (3.80-5.20); White Blood Cell Count 10.34 K/mm3 (4.00-11.30)
[2024-06-03 04:44] LABS: International Normalized Ratio 1.07; Prothrombin Time Results 11.4 Sec (9.7-11.5)
[2024-06-03 04:59] LABS: Albumin, Blood 3.1 g/dL (3.4-5.0); Albumin/Globulin Ratio 0.9 (0.8-1.8); Bilirubin, Total 0.3 mg/dL (0.1-1.0); Bun/Creatinine Ratio 40.9 (12.0-20.0); Calcium, Blood 8.3 mg/dL (8.5-10.1); Creatinine, Blood 1.15 mg/dL (0.40-1.00); Globulin, Blood 3.3 g/dL (2.2-4.0); Total Protein, Blood 6.4 g/dL (6.4-8.2)
[2024-06-03] MEDS ORDERED: Levothyroxine Sodium 0.05 MG Tab PO SCH (06:00)
--- NOTE | 2024-06-03 06:19 | NUR ---
SHIFT SUMMARY ASSUMED CARE AT 1900. PT A&OX4 AND TALKATIVE. ADMISSION COMPLETED WITH PT WHO IS A GOOD HISTORIAN. PT REPORTS USING WHEELCHAIR MORE THAN WALKER AT DETENTION. PICTURES OF SKIN BREAKDOWN TO THE RIGHT BREAST AND SACRUM DOCUMENTED IN CHART. Q2H TURNS DONE BY PT. PT REPORTS SLIGHT TO MOD PAIN; PRN GIVEN AND REASSESSED. NO PAIN REPORTED SINCE. WHILE SLEEPING PT'S O2 SAT DECREASED AND 2L NC WAS PLACED OTHER VSS. NO DESAT SINCE. BED PLACED IN LOWEST POSITION AND CALL LIGHT WITHIN REACH. WILL UPDATE ONCOMING RN.
[2024-06-03] MEDS ORDERED: dilTIAZem HCL 60 MG TAB PO SCH (07:30)
[2024-06-03] MEDS ORDERED: MetFORMIN HCl 500 mg PO SCH (08:00)
[2024-06-03 08:15] VITALS: BP 139/85
[2024-06-03] MEDS ORDERED: Enoxaparin 40 MG/0.4 ML SYR SC SCH (09:00)
[2024-06-03] MEDS ORDERED: Citalopram Hydrobromide 10 MG TAB PO SCH (09:00)
[2024-06-03] MEDS ORDERED: Psyllium 1 EA Pack PO SCH (09:00)
[2024-06-03] MEDS ORDERED: Atorvastatin 10 MG Tab PO SCH (09:00)
[2024-06-03] MEDS ORDERED: Potassium Chloride 10 Meq Tablet SA PO SCH (09:00)
[2024-06-03] MEDS ORDERED: Aspirin 81 MG Chew PO SCH (09:00)
--- NOTE | 2024-06-03 09:59 | NUR ---
"Spiritual care Visit | Pt. request Pt. is awake in bed when she welcomes my visit. Pt. verbalizes frustration over many of her her health concerns. Pt shares of her deon journey and how her local islam has supported her through her difficult times. Listen with empathy and a calming presence. Pt. requested I contact her islam. Pts. cardiac doctor arrived and this sheriff's officer excused himself. Will remain available to Pt. and her nurse."
[2024-06-03 12:39] VITALS: BP 124/95
[2024-06-03 16:32] VITALS: BP 129/89
--- NOTE | 2024-06-03 18:49 | NUR ---
SHIFT SUMMARY PT A/OX4 AND COOPERATIVE OF CARE. PT ABLE TO EXPRESS NEEDS AND CALLED APPROPIATE. PT ON 2L NC AT BEGINNING OF SHIFT, TITRATED TO RA WITH SATS IN 90'S. ALL OTHER VSS THROUGHOUT SHIFT. NO REPORT OF SOB/DYSPNEA THROUGHOUT SHIFT. PT CONTINUOUSLY ENDORSED CHEST DISCOMFORT, TREATED PER EMAR WITH NO RELIEF. PT REPORTED THAT CHEST DISCOMFORT "HAS BEEN GOING ON SINCE 2009." PT HAD FIRST PORTION OF STRESS TEST DONE TODAY, PLAN FOR SECOND PORTION IN THE AM, PT TO BE NPO AT MIDNIGHT. PUREWICK REMAINS IN PLACE, YELLOW URINE.
[2024-06-03 19:58] VITALS: BP 122/78
[2024-06-04] VITALS (7 sets, daily range): BP systolic 90–132; BP diastolic 64–89
[2024-06-04] MEDS ORDERED: Bumetanide 1 MG Tab PO SCH
[2024-06-04 03:57] LABS: BASOPHILS ABSOLUTE AUTO 0.02 K/mm3 (0.00-0.23); BASOPHILS PERCENT AUTO 0 % (0-2); EOSINOPHILS ABSOLUTE AUTO 0.51 K/mm3 (0.00-0.68); EOSINOPHILS PERCENT AUTO 5 % (0-6); Hematocrit 43.1 % (33.0-51.0); IMMATURE GRAN PERCENT AUTO 1 % (0-1); LYMPHOCYTES ABSOLUTE AUTO 1.87 K/mm3 (0.84-5.20); LYMPHOCYTES PERCENT AUTO 18 % (21-46); MONOCYTES ABSOLUTE AUTO 0.89 K/mm3 (0.16-1.47); MONOCYTES PERCENT AUTO 9 % (4-13); Mean Corpuscular HGB Conc 32.5 g/dL (31.5-36.5); Mean Corpuscular Volume 89 fL (80-100); Mean Platelet Volume 9.4 fL (9.1-12.4); NEUTROPHILS ABSOLUTE AUTO 6.77 K/mm3 (1.96-9.15); NEUTROPHILS PERCENT AUTO 67 % (41-73); Platelet Count 264 K/mm3 (150-400); RDW Coefficient Variation 16.1 % (11.7-14.2); RDW Standard Deviation 53.1 fL (35.1-46.3); Red Blood Cell Count 4.83 M/mm3 (3.80-5.20); White Blood Cell Count 10.16 K/mm3 (4.00-11.30)
[2024-06-04 04:22] LABS: Albumin, Blood 2.8 g/dL (3.4-5.0); Albumin/Globulin Ratio 0.9 (0.8-1.8); Bilirubin, Total 0.4 mg/dL (0.1-1.0); Bun/Creatinine Ratio 37.9 (12.0-20.0); Calcium, Blood 8.2 mg/dL (8.5-10.1); Creatinine, Blood 1.16 mg/dL (0.40-1.00); Globulin, Blood 3.2 g/dL (2.2-4.0); Potassium, Blood 4.3 mmol/L (3.5-5.5)
[2024-06-04] MEDS ORDERED: Calcitriol 0.25 MCG Cap PO SCH (09:00)
[2024-06-04] MEDS ORDERED: Regadenoson 0.4 MG/5 ML SYRINGE ONE (09:02)
--- NOTE | 2024-06-04 13:09 | NUR ---
1020 PT DOWN TO IMAGING FOR SECOND PORTION OF STRESS TEST. PT TRANSFERED VIA WHEELCHAIR AND ON RA. PT ARRIVED BACK TO ROOM AT 1100.
--- NOTE | 2024-06-04 18:38 | NUR ---
SHIFT SUMMARY PT A/OX4 AND COOPERATIVE OF CARE. PT ABLE TO EXPRESS NEEDS AND CALLED APPROPIATE. PT BP'S SOFT THIS SHIFT, MD AWARE. OTHER VSS THROUGHOUT SHIFT WITH O2 SATS IN THE 90'S ON RA. PT CONTINUED TO REPORT CHEST DISCOMFORT, TREATED PER EMAR, NO RELIEF. NO REPORT OF SOB/DYSPNEA THROUGHOUT SHIFT. PT HAD SECOND PORTION OF STRESS TEST DONE TODAY, SEE CHART FOR RESULTS. PT REPORTED INCREASED CHEST DISCOMFORT THAT RADIATED TO HER NECK DURING THE STRESS TEST. PT HAD ECHO DONE TODAY PER ORDER. PUREWICK IN PLACE DRAINING TO GRAVITY, YELLOW URINE.
[2024-06-04] MEDS ORDERED: Ipratropium/Albuterol SulF 2.5-0.5MG/3 ML Amp INH SCH (23:10)
[2024-06-05 03:29] VITALS: BP 92/60
[2024-06-05 03:49] LABS: BASOPHILS ABSOLUTE AUTO 0.04 K/mm3 (0.00-0.23); BASOPHILS PERCENT AUTO 0 % (0-2); EOSINOPHILS ABSOLUTE AUTO 0.71 K/mm3 (0.00-0.68); EOSINOPHILS PERCENT AUTO 5 % (0-6); Hematocrit 44.7 % (33.0-51.0); Hemoglobin 14.7 g/dL (11.5-16.0); IMMATURE GRAN ABSOLUTE AUTO 0.11 K/mm3 (0.00-0.10); IMMATURE GRAN PERCENT AUTO 1 % (0-1); LYMPHOCYTES ABSOLUTE AUTO 1.89 K/mm3 (0.84-5.20); LYMPHOCYTES PERCENT AUTO 14 % (21-46); MONOCYTES ABSOLUTE AUTO 0.98 K/mm3 (0.16-1.47); MONOCYTES PERCENT AUTO 7 % (4-13); Mean Corpuscular HGB 28.9 pg (26.0-34.0); Mean Corpuscular HGB Conc 32.9 g/dL (31.5-36.5); Mean Corpuscular Volume 88 fL (80-100); NEUTROPHILS ABSOLUTE AUTO 10.18 K/mm3 (1.96-9.15); NEUTROPHILS PERCENT AUTO 73 % (41-73); Platelet Count 260 K/mm3 (150-400); RDW Coefficient Variation 16.4 % (11.7-14.2); Red Blood Cell Count 5.08 M/mm3 (3.80-5.20); White Blood Cell Count 13.91 K/mm3 (4.00-11.30)
[2024-06-05 04:23] LABS: Albumin, Blood 2.9 g/dL (3.4-5.0); Albumin/Globulin Ratio 0.9 (0.8-1.8); Bilirubin, Total 0.4 mg/dL (0.1-1.0); Bun/Creatinine Ratio 34.3 (12.0-20.0); Calcium, Blood 8.7 mg/dL (8.5-10.1); Creatinine, Blood 1.43 mg/dL (0.40-1.00); Globulin, Blood 3.3 g/dL (2.2-4.0); Potassium, Blood 4.7 mmol/L (3.5-5.5); Total Protein, Blood 6.2 g/dL (6.4-8.2)
--- NOTE | 2024-06-05 05:52 | NUR ---
1915 Assumed care of pt, bedside report completed. Shift plan of care reviewed with pt, all questions answered. Pt with uneventful shift tonight. Medicate for pain x 1 with good results for bilat shoulder pain that is chronic in nature. Appears to have slept well. Pt anxious for the ECHO results and is expecting to DC today back to [facility]. Pt reports still feeling weak from prior PNA admit,though does feel she is nearing her baseline. Pt reports satisfied with medical and nursing care, Able to make needs known. Please see full assesment for full details. No further compaints or concerns at this time, will continue to monitor.
[2024-06-05 08:30] VITALS: BP 117/83
[2024-06-05] MEDS ORDERED: ASPI81CH PO (11:17)
[2024-06-05] MEDS ORDERED: TRAZ100 PO (11:18)
[2024-06-05 11:42] VITALS: BP 101/50
--- NOTE | 2024-06-05 12:59 | NUR ---
REPORT CALLED TO [facility] DONAHUE AT 1254. [facility] INFORMED THAT TRANSPORT SHOULD BE AT HOSPITAL AT ROUGHLY 1400.
--- NOTE | 2024-06-05 16:09 | NUR ---
DISCHARGE UPDATE TRANSPORT ARRIVED AT 1600. PT BELONGINGS GATHERED IN BAG AND WITH PT AT TIME OF TRANSFER TO [facility]. DISCHARGE PACKET WITH TRANSPORT PERSONEL. HARD SCRIPT FOR PERCOCET IN DISCHARGE PACKET, LJ RN WAS NOTIFIED DURING REPORT. PT ABLE TO TRANSFER TO WHEELCHAIR WITH SOME ASSISTANCE, TOLERATED WELL. PT LEFT AT 1610.
== END 2024-06-05 16:04 ==
LOC: ER 11:51 → PCU 11:52 → ER 16:48 → PCU 18:22
PROVIDERS: Student in an Organized Health Care Education/Training Program; ADMIT Family Medicine
DX: I25.118 Atherosclerotic heart disease of native coronary artery with other forms of angina pectoris (principal); J18.9 Pneumonia, unspecified organism; E11.22 Type 2 diabetes mellitus with diabetic chronic kidney disease; I13.0 Hypertensive heart and chronic kidney disease with heart failure and stage 1 through stage 4 chronic kidney disease, or unspecified chronic kidney disease; N18.30 Chronic kidney disease, stage 3 unspecified; I50.9 Heart failure, unspecified; E66.9 Obesity, unspecified; I25.2 Old myocardial infarction; E78.5 Hyperlipidemia, unspecified; E03.9 Hypothyroidism, unspecified; I48.20 Chronic atrial fibrillation, unspecified; Z79.899 Other long term (current) drug therapy; Z88.8 Allergy status to other drugs, medicaments and biological substances
CPT/HCPCS: 36415; 71046; 78452; 80053; 82947; 83880; 84484; 85025; 85379; 85610; 85730; 93005; 93010; 93017; 94640; 94664; 94760; 94762; 99285-25; A9270; A9500; C8929; G0378; J2785; J7030; Q9957